=== PATIENT | male | born 1965 | race Caucasian/White ===

== ENCOUNTER → 2016-09-13 | Outpatient (CLI) | payer BC, MEDICARE ==
--- NOTE | 2016-09-14 00:16 | ECWPNPC ---
PATIENT NAME: FRANKO MOLINA : 1965 GENDER: MALE VISIT DATE: 09/13/2016 DISCHARGE DATE: 09/13/16 1208 VISIT LOCKED DATE TIME: PHYSICIAN: MAYA GARCIA RESOURCE: MAYA GARCIA REASON FOR APPOINTMENT 1. CERVICAL HISTORY OF PRESENT ILLNESS NEW PATIENT CONSULT: 51 Y/O MALE REFERRED BY DR. MOLINA FOR EVALUATION OF CHRONIC NECK PAIN.HAD CERVICAL FUSION IN MID AND NECK PAIN AND LEFT ARM PARATHESIAS MARKEDLY IMPROVED.FIVE YEARS AGO HIS PAIN IN NECK RETURNED AND HE ENDED UP HAVING CERVICAL DISCECTOMY.HE BEGAN TO SEE [facility] AND WAS TREATED WITH INJECTIONS AND MEDICATION.STOPPED GOING AROUND 5 MONTHS AGO AND REASON IS NOT CLEAR WHY.PATIENT HAS POOR RECALL AND REPORTS DIFFICULTY WITH MEMORY.FOLLOWS WITH [facility] OVER THE PAST FEW YEARS FOR TREMORS AND HAS BEEN ON PRIMIDONE THE PAST YEAR WHICH HAS BEEN HELPFUL.HIT HEAD GOING DOWN STAIRS AT BEGINNING OF MONTH AND NECK JACKSON HAS ESCALATED.RATING PAIN VAS 9/10.DESCRIBES PAIN SHARP AND ACHING.PAIN IS AGGREVATED BY TURNING NECK.HAS BEEN USING PERCOCET FROM AN OLD PRESCRIPTION BUT HAS RUN OUT ONE WEEK AGO.POOR HISTORIAN. WHEN DID YOUR PAIN FIRST START? . BRIEFLY DESCRIBE HOW YOUR PAIN STARTED? . HOW DOES YOUR PAIN CHANGE WITH TIME? . DOES YOUR PAIN AWAKEN YOU FROM SLEEP? . HOW MANY HOURS OF SLEEP DO YOU NORMALLY GET? . ANY DIAGNOSTIC TESTING? . FACILITY WHERE TESTS WERE DONE? ____. PAIN TREATMENT TREATMENT YES CANCER HAVE YOU EVER HAD ANY TYPE OF CANCER?NO NO. PAIN SCREENING: PATIENT HAS A COMPLAINT OF ACUTE OR CHRONIC PAIN YES FALL RISK SCREENING: SCREENING :NO FALLS IN THE PAST YEAR MEJIA INVENTORY: QUESTIONNAIRE ASSESSEDYES SCORE VALUE CALCULATED YES CURRENT MEDICATIONS TAKING ASPIR-81 81 MG TABLET DELAYED RELEASE 1 TABLET ORALLY ONCE A DAY TAKING CELEBREX 200 MG CAPSULE 1 CAPSULE ORALLY ONCE A DAY TAKING LISINOPRIL 10 MG TABLET 1 TABLET ORALLY TWICE A DAY TAKING ZYRTEC ALLERGY 10 MG TABLET 1 TABLET ORALLY ONCE A DAY TAKING PERCOCET 5-325 MG TABLET 1 TABLET NEEDED ORALLY EVERY 6 HRS TAKING CYCLOBENZAPRINE HCL 10 MG TABLET 1 TABLET ORALLY 3X/DAY NEEDED TAKING PRIMIDONE 50 MG TABLET ORALLY TWICE DAILY TAKING ESCITALOPRAM OXALATE 10 MG TABLET 1 TABLET ORALLY ONCE A DAY TAKING AMLODIPINE BESYLATE 10 MG TABLET 1 TABLET ORALLY ONCE A DAY DISCONTINUED ATENOLOL 25 MG TABLET 1 TABLET ORALLY ONCE A DAY DISCONTINUED ATIVAN 0.5 MG TABLET TAB ORALLY QID PRN DISCONTINUED HYDROCHLOROTHIAZIDE 25 MG TABLET 1 TABLET ORALLY ONCE A DAY DISCONTINUED MECLIZINE HCL 25 MG TABLET CHEWABLE 1 TABLET ORALLY TID PRN DISCONTINUED TRAMADOL-ACETAMINOPHEN 37.5-325 MG TABLET 2 TABLETS NEEDED ORALLY EVERY 6 HRS DISCONTINUED VALIUM 5 MG TABLET 1 TABLET NEEDED ORALLY TWICE A DAY DISCONTINUED LEXAPRO 10 MG TABLET 1 TABLET ORALLY ONCE A DAY DISCONTINUED HYDROCODONE-ACETAMINOPHEN 5-500 MG CAPSULE 1 CAPSULE NEEDED ORALLY EVERY 6 HRS MEDICATION LIST REVIEWED AND RECONCILED WITH THE PATIENT PAST MEDICAL HISTORY DEPRESSION ANXIETY HTN GENERALIZED OSTEOARTHRITIS INTERVERTEBRAL DISC DEGENERATION LUMBAR RADICULOPATHY CERVICAL RADICULOPATHY NECK SPRAIN OSTEOARTHRITIS ALLERGIES N.K.D.A. SURGICAL HISTORY RIGHT ROTATOR CUFF REPAIR X 2 SURGERIES CERVICAL FUSION C SPINE DISCECTOMY L SPINE LAMINECTOMY FAMILY HISTORY FATHER: MOTHER: 1 SON(S) , 2 DAUGHTER(S) - HEALTHY. SOCIAL HISTORY GENERAL: TOBACCO USE ARE YOU A:NONSMOKER ALCOHOL SCREENING POINTS4 INTERPRETATIONPOSITIVE RECREATIONAL DRUG USE DRUG USE?NO CAFFEINE CAFFEINE USE?YES HOW OFTEN AND HOW MUCH? 1 CUP OF COFFEE DAILY OCCUPATION: DISABLED. DIET: REGULAR, NO ADDED SALT. EXERCISE: NONE. MARITAL STATUS: . OTHERS AT HOME: SPOUSE, CHILDREN. CAODAISM: NONE. LEARNING BARRIERS / SPECIAL NEEDS VISION IMPAIRED?YES :CORRECTIVE LENSES LEARNING PREFERENCES?YES :HANDOUTS, DEMONSTRATION/VERBAL INSTRUCTION MEDICATION ABUSE NO PSYCHOLOGICAL HX TREATMENTNO PAIN CLINIC PFS, CLERGY, PUBLIC HEALTH REFERRALS PFS REFERRAL NEEDED?NO CLERGY REFERRAL NEEDED?NO PUBLIC HEALTH REFERRAL NEEDED?NO WAS THE PROVIDER NOTIFIED OF ANY PERTINENT INFO?NO PATIENT: ____. ADVANCED DIRECTIVES HEALTH CARE PROXY?YES NAME OF HCP EMILIANO MOLINA CONTACT # FOR HCP [phone] IF YES, DO YOU HAVE A COPY WITH YOU? NO DO YOU HAVE A DNR?NO LIVING WILL?NO POWER OF WHEEL OF FORTUNE DEALER?NO DOMESTIC VIOLENCE: NONE. HOSPITALIZATION/MAJOR DIAGNOSTIC PROCEDURE UTI ABOVE SURGERIES REVIEW OF SYSTEMS CONSTITUTIONAL: ANY CHANGE IN YOUR MEDICAL CONDITION? NO . CHILLS NO . FEVER NO . INFECTION: DO YOU HAVE NEW INFECTIONS? NO . DO YOU HAVE HISTORY OF MRSA? NO . MUSCULOSKELETAL: ANY NEW PATTERNS OF PAIN OR NUMBNESS? YES PT STATES 08/2016 &QUOT; JAMMED MY HEAD/NECK INTO SHELF GOING DOWNSTAIRS&QUOT; HAS HAD NECK/SHOULDER PAIN BILATERALLY SINCE INCIDENT. . SYTEMIC LUPUS NO . GASTROENTEROLOGY: ANY NEW CHANGE IN BOWEL CONTROL? NO . BARRETTS ESOPHAGUS NO . CIRRHOSIS NO . HEPATITIS NO . LIVER FAILURE NO . ACID REFLUX NO . UNEXPLAINED WEIGHT LOSS NO . GENITOURINARY: ANY NEW CHANGE IN BLADDER CONTROL? NO . IS THERE A CHANCE YOU COULD BE ? NO . HEMATOLOGY/LYMPH: DO YOU TAKE ANY BLOOD THINNERS? (FOR EXAMPLE- COUMADIN, PLAVIX, AGGRENOX, PLATEL, PRADAXA, OR XARELTO) NO . WHEN WAS YOUR LAST DOSE? DATE: TIME: . LOW PLATELET COUNT NO . SICKLE CELL DISEASE NO . VON WILLIEBRANDS NO . FACTOR V LEIDEN NO . THALLASEMIA NO . ANEMIA NO . EASY BRUISING NO . NEUROLOGY: HAVE YOU FALLEN IN THE PAST 6 MONTHS? YES 08/2016 ONSTAIRS . ANY NEW EXTREMITY NUMBNESS OR WEAKNESS? NO . HEAD INJURY YES 08/2016 -STRUCK HEAD ON SHELF ON STAIRS. EVALUATED AT [facility] X 2 VISITS. . DEMENTIA NO . CEREBRAL PALSY NO . MULTIPLE SCLEROSIS NO . DIZZINESS NO . HEADACHE NO . STROKES NO . VERTIGO NO . CARDIOLOGY: DO YOU HAVE A PACEMAKER OR DEFIBRILLATOR? NO . ANGINA NO . HEART ATTACK NO . HEART SURGERY NO . CONGESTIVE HEART FAILURE/FLUID OVERLOAD NO . CHEST PAIN NO, RETROSTERNAL, SHARP, RADIATING TO NECK, RADIATING TO LEFT ARM . HIGH BLOOD PRESSURE ON MEDICATION(S) . IRREGULAR HEART BEAT NO . RESPIRATORY: HAVE YOU BEEN SICK IN THE PAST WEEK? NO . FEVER NO . FLU LIKE SYMPTOMS? NO . CPAP NO . BYPAP NO . ASTHMA NO . EMPHYSEMA NO . CHRONIC LUNG DISEASES NO . SHORTNESS OF BREATH ON EXERTION NO . DO YOU USE ANY TYPE OF TOBACCO (SMOKE, SMOKELESS, CHEW)? YES CHEWS TOBACCO . COUGH NO . SNORING YES . INTEGUMENTARY: DO YOU HAVE ANY RASHES OR OPEN SORES? NO . ALLERGIC/IMMUNO: ARE YOU ALLERGIC TO SHELLFISH OR IV DYE? NO . ANY NEW ALLERGIES? NO . PSYCHIATRIC: DO YOU HAVE THOUGHTS OF HURTING YOURSELF OR SOMEONE ELSE? NO . ARE YOU ABUSED, NEGLECTED, OR IN AN UNSAFE ENVIRONMENT? NO . ENDOCRINOLOGY: ARE YOU DIABETIC? NO . THYROID DISORDER NO . OTHER: DO YOU NEED ANY PRESCRIPTIONS? NO . IF YES, PLEASE LIST: ____ . ANY NEW PROBLEMS WITH YOUR MEDICATIONS? NO . WHEN DID YOU LAST EAT? ____ . WHEN DID YOU LAST DRINK? ____ . WHAT DID YOU LAST DRINK? ____ . NAME OF PERSON DRIVING YOU HOME? ____ . DO YOU HAVE ANY OTHER QUESTIONS OR CONCERNS NO . REVIEWED BY: PROVIDER: MAYA LE . VITAL SIGNS WT 160.8 LBS, HT 5'5", BMI 26.76 INDEX, BP 152/88 MM HG, HR 88 /MIN, RR 18 /MIN, TEMP 98.1 F, OXYGEN SAT % 98%, NA INITIALS AW 10:40, REVIEWED BY: MLF. EXAMINATION GENERAL EXAMINATION: GENERAL APPEARANCE:NO ACUTE DISTRESS. NECK:NEG LYMPHADENOPATHY. LUNGS:LUNG SOUNDS ARE CLEAR.RESPIRATIONS NON-LABORED. ABDOMEN:SOFT, NON-TENDER, NO ORGANOMEGALY, BOWEL SOUNDS ARE NORMAL. DIAGNOSTIC -MRI [id number]-REVIEWED. CERVICAL SPINE/NECK: RANGE OF MOTION OF NECK:LIMITED IN ALL DIRECTIONS. REFLEXES:DTRS IN THE ARMS ARE 2+ THROUGHOUT AND EQUAL BILATERALLY. SENSATIONS:NORMAL BILATERALLY. VERTEBRAL SPINE TENDERNESS:POSITIVE W PALPATION OF CERVICAL AXIS AND CERVICAL PARASPINALS. ASSESSMENTS CERVICAL SPINAL STENOSIS - M48.02 (PRIMARY) CERVICAL POST-LAMINECTOMY SYNDROME - M96.1 TREATMENT CERVICAL SPINAL STENOSIS INJECTION FACET JOINT/NERVE MAYA PALOMARES 09/13/2016 11:43:46 AM > BILAT C4/5-C5/6 THERAPEUTIC FACET NOTES: FACET JOINT INJECTION MATERIAL WAS PRINTED,FACET JOINT INJECTION: YOUR EXPERIENCE MATERIAL WAS PRINTED. PROCEDURE CODES FA211 ESTABILISHED PATIENT [facility] FACILITY CHARGE DISPOSITION & COMMUNICATION FOLLOW UP 2WK POST (REASON: BILAT C4/5-C5/6 THERAPEUTIC FACET BLOCK) ELECTRONICALLY SIGNED BY REY NETTLES ON 09/13/2016 AT 04:23 PM EDT DISCLAIMER : THIS IS A VISIT SUMMARY EXTRACTED FROM THE [employer] CHART. IT IS NOT A COPY OF THE [employer] PROGRESS NOTE. KAMALJIT
== END | disposition home or self-care (01) ==
LOC: M PAIN 11:20
PROVIDERS: ATTEND Nurse Practitioner Family
DX: G89.29 Other chronic pain (principal); M48.02 Spinal stenosis, cervical region; M96.1 Postlaminectomy syndrome, not elsewhere classified; I10 Essential (primary) hypertension; F41.9 Anxiety disorder, unspecified; F32.9 Major depressive disorder, single episode, unspecified; M54.12 Radiculopathy, cervical region; M54.16 Radiculopathy, lumbar region; M51.9 Unspecified thoracic, thoracolumbar and lumbosacral intervertebral disc disorder; Z79.899 Other long term (current) drug therapy; Z79.82 Long term (current) use of aspirin

== ENCOUNTER → 2016-09-28 | Outpatient (CLI) | payer BC, MEDICARE ==
[~2016-09-28] MED LIST: BUPIVACAINE HCL 0.25% 30 ML VIAL As Ordered ONE; ISOVUE-M 300 61% 15ML VIAL (Q9967) As Ordered ONE; LIDOCAINE 1% SDV INJ 30 ML VIAL As Ordered ONE; TRIAMCINOLONE ACETONIDE SUSP 40 MG/ML VIAL (J3301) As Ordered ONE; diazePAM 5 MG TAB As Ordered ONE; oxyCODONE 5MG TAB As Ordered ONE
--- NOTE | 2016-09-28 14:51 | REP ---
C-ARM FLUOROSCOPY GUIDANCE FOR BILATERAL CERVICAL FACET INJECTION: 09/28/2016 CLINICAL HISTORY: Neck pain. Plate and screw anterior cervical fixation from C5 through C7 noted. There are needles at C6-7 and C7-T1 levels on each side with contrast adjacent to the needles overlying those facets. Fluoroscopy time: 9 seconds. Signed by Robin Wong MD 09/28/2016 05:52 P
--- NOTE | 2016-10-08 23:38 | ECWPNPC ---
PATIENT NAME: FRANKO MOLINA : 1965 GENDER: MALE VISIT DATE: 09/28/2016 DISCHARGE DATE: 09/28/16 1219 VISIT LOCKED DATE TIME: PHYSICIAN: DEBBIE YE RESOURCE: DEBBIE YE REASON FOR APPOINTMENT 1. BILAT THERAPEUTIC FACET BLK HISTORY OF PRESENT ILLNESS HISTORY OF PRESENT ILLNESS: PAIN THE PATIENT DESCRIBES THE PAIN... FALL RISK SCREENING: SCREENING :NO FALLS IN THE PAST YEAR CURRENT MEDICATIONS TAKING ASPIR-81 81 MG TABLET DELAYED RELEASE 1 TABLET ORALLY ONCE A DAY, NOTES: 09/28 5AM TAKING CELEBREX 200 MG CAPSULE 1 CAPSULE ORALLY ONCE A DAY, NOTES: 09/28 5AM TAKING LISINOPRIL 10 MG TABLET 1 TABLET ORALLY TWICE A DAY, NOTES: 09/28 5AM TAKING ZYRTEC ALLERGY 10 MG TABLET 1 TABLET ORALLY ONCE A DAY, NOTES: FEW MONTHS AGO TAKING PERCOCET 5-325 MG TABLET 1 TABLET NEEDED ORALLY EVERY 6 HRS, NOTES: SUNDAY GINI TAKING CYCLOBENZAPRINE HCL 10 MG TABLET 1 TABLET ORALLY 3X/DAY NEEDED, NOTES: SUNDAY GINI TAKING PRIMIDONE 50 MG TABLET ORALLY TWICE DAILY, NOTES: 09/28 5A TAKING ESCITALOPRAM OXALATE 10 MG TABLET 1 TABLET ORALLY ONCE A DAY, NOTES: 09/28 5AM TAKING AMLODIPINE BESYLATE 10 MG TABLET 1 TABLET ORALLY ONCE A DAY, NOTES: 09/28 5AM MEDICATION LIST REVIEWED AND RECONCILED WITH THE PATIENT PAST MEDICAL HISTORY DEPRESSION ANXIETY HTN GENERALIZED OSTEOARTHRITIS INTERVERTEBRAL DISC DEGENERATION LUMBAR RADICULOPATHY CERVICAL RADICULOPATHY NECK SPRAIN OSTEOARTHRITIS ALLERGIES N.K.D.A. REVIEW OF SYSTEMS CONSTITUTIONAL: ANY CHANGE IN YOUR MEDICAL CONDITION? NO . CHILLS NO . FEVER NO . INFECTION: DO YOU HAVE NEW INFECTIONS? NO . DO YOU HAVE HISTORY OF MRSA? NO . MUSCULOSKELETAL: ANY NEW PATTERNS OF PAIN OR NUMBNESS? NO . GASTROENTEROLOGY: ANY NEW CHANGE IN BOWEL CONTROL? NO . GENITOURINARY: ANY NEW CHANGE IN BLADDER CONTROL? NO . IS THERE A CHANCE YOU COULD BE ? NO . HEMATOLOGY/LYMPH: DO YOU TAKE ANY BLOOD THINNERS? (FOR EXAMPLE- COUMADIN, PLAVIX, AGGRENOX, PLATEL, PRADAXA, OR XARELTO) NO . WHEN WAS YOUR LAST DOSE? DATE: TIME: . NEUROLOGY: HAVE YOU FALLEN IN THE PAST 6 MONTHS? NO . ANY NEW EXTREMITY NUMBNESS OR WEAKNESS? NO . CARDIOLOGY: DO YOU HAVE A PACEMAKER OR DEFIBRILLATOR? NO . RESPIRATORY: HAVE YOU BEEN SICK IN THE PAST WEEK? NO . FEVER NO . FLU LIKE SYMPTOMS? NO . COUGH NO . INTEGUMENTARY: DO YOU HAVE ANY RASHES OR OPEN SORES? NO . ALLERGIC/IMMUNO: ARE YOU ALLERGIC TO SHELLFISH OR IV DYE? NO . ANY NEW ALLERGIES? NO . PSYCHIATRIC: DO YOU HAVE THOUGHTS OF HURTING YOURSELF OR SOMEONE ELSE? NO . ARE YOU ABUSED, NEGLECTED, OR IN AN UNSAFE ENVIRONMENT? NO . ENDOCRINOLOGY: ARE YOU DIABETIC? NO . OTHER: DO YOU NEED ANY PRESCRIPTIONS? NO . IF YES, PLEASE LIST: ____ . ANY NEW PROBLEMS WITH YOUR MEDICATIONS? NO . WHEN DID YOU LAST EAT? 09/27 . WHEN DID YOU LAST DRINK? 09/28 8:30AM . WHAT DID YOU LAST DRINK? WATER . NAME OF PERSON DRIVING YOU HOME? BRADLEY MOLINA . DO YOU HAVE ANY OTHER QUESTIONS OR CONCERNS PT IS A CURRENT CHEWING TOBACCO USER, REFUSING ANY SMOKING CESSATION COUNSELING AT THIS TIME. JB . REVIEWED BY: PROVIDER: . VITAL SIGNS WT 160.8 LBS, HT 5'5", BMI 26.76 INDEX, BP 160/95 MM HG, HR 77 /MIN, RR 18 /MIN, TEMP 98.1 F, OXYGEN SAT % 98%, SAFE IN ENV? (Y/N) Y, NA INITIALS SC 11:00, REVIEWED BY: JB. ASSESSMENTS SPONDYLOSIS WITHOUT MYELOPATHY OR RADICULOPATHY, CERVICAL REGION - M47.812 (PRIMARY) PROCEDURES PN CERVICAL FACET BLOCK LOW BILATERAL CERVICAL PRE PROCEDURE DIAGNOSIS CERVICAL SPONDYLOSIS POST PROCEDURE DIAGNOSIS CERVICAL SPONDYLOSIS PROCEDURE BILATERAL C5-C6 AND BILATERAL C6-C7 CERVICAL FACET BLOCK THERAPEUTIC SURGEON DR. DEBBIE YE CARGO OPERATIONS AGENT NONE ANESTHESIA LOCAL PRE PROCEDURE NOTE THE PATIENT HAS HISTORY OF CHRONIC CERVICAL PAIN. I EVALUATE THE PATIENT AND REVIEWED THE CHART. I WENT OVER THE RISKS, ALTERNATIVES, AND BENEFITS ASSOCIATED WITH THIS PROCEDURE. THE PATIENT WOULD LIKE TO PROCEED AND GIVE CONSENT TO PERFORMED THE PROCEDURE. THE PATIENT DENIES UNEXPLAINABLE WEIGHT LOSS, FEVER, CHILLS, OR NEW CHANGES IN URINARY OR BOWEL CONTROL. DESCRIPTION OF PROCEDURE THE PATIENT WAS BROUGHT TO THE PROCEDURE ROOM AND PLACED IN THE PRONE POSITION. THE CERVICOTHORACIC AREA WAS CLEANED WITH CHLORAPREP SOLUTION AND DRAPED ASEPTICALLY. THE PROCEDURE WAS DONE UNDER STERILE CONDITIONS. I CHECKED LATERALITY AND THE LEVEL WHERE THE PROCEDURE WAS GOING TO BE PERFORMED WITH THE PATIENT AND THE SUPPORTING STAFF AT THE MOMENT OF THE TIME OUT IN THE PROCEDURE ROOM. UNDER FLUOROSCOPIC GUIDANCE, TARGET POINT WAS SELECTED AT THE RIGHT AND LEFT C5-C6 AND RIGHT AND LEFT C6-C7 CERVICAL FACET JOINT. TARGET POINTS WERE SELECTED AFTER LATERAL ROTATION AND TILT OF THE MAGNIFIER OF THE C-ARM. LIDOCAINE 0.5% WAS USED TO NUMB THE SKIN AND THE SUBCUTANEOUS TISSUE BELOW IT. SPINAL NEEDLES, 22-GAUGE, WERE ADVANCED UNDER FLUOROSCOPIC GUIDANCE AND FOLLOWING PATIENT FEEDBACK UNTIL THE TARGETS WERE TOUCHED. THE POSITION OF THE NEEDLES WAS VERIFIED WITH AP AND LATERAL VIEWS. AFTER PROPER POSITION OF THE NEEDLES WAS ACHIEVED, ISOVUE M DYE 30, 0.1 ML WAS INJECTED SHOWING SPREAD OF THE DYE. THEN A SOLUTION OF 0.9 ML OF BUPIVACAINE 0.125% AND KENALOG 10 MG WAS INJECTED AT EACH SITE. THERE WAS NO EVIDENCE OF BLOOD, PARESTHESIA OR CEREBROSPINAL FLUID DURING THE PROCEDURE. THE PATIENT WAS SENT TO THE RECOVERY ROOM. THE PATIENT WAS MOVING THE EXTREMITIES AND DOING WELL. THERE WAS NO COMPLICATION DURING THE PROCEDURE. FLUOROSCOPY TIME WAS 9 SECONDS POST PROCEDURE NOTE THE PATIENT WILL BE SEEN IN A FOLLOW UP IN THE NEXT FEW WEEKS. INSTRUCTIONS WERE GIVEN, QUESTIONS WERE ANSWERED, AND THE PATIENT EXPRESSED UNDERSTANDING AND AGREES WITH THE PLAN. I, YE ENRIQUEZ, DOCUMENTED THE ABOVE INFORMATION ACTING A SCRIBE FOR DR. YE. I HAVE REVIEWED THE ABOVE DOCUMENT, WRITTEN BY YE ENRIQUEZ SCRIBE AND I VERIFY THAT IT IS ACCURATE DIAGNOSTIC IMAGING [facility] FACET BLOCK (PAIN)[id number] PROCEDURE CODES 83018 INJ PARAVERT F JNT C/T 1 LEV 04848 INJ PARAVERT F JNT C/T 2 LEV 6045F RADXPS IN END [id number] PXD DISPOSITION & COMMUNICATION FOLLOW UP 3 WEEKS ELECTRONICALLY SIGNED BY DEBBEI YE MD ON 10/08/2016 AT 08:55 PM EDT DISCLAIMER : THIS IS A VISIT SUMMARY EXTRACTED FROM THE [employer] CHART. IT IS NOT A COPY OF THE [employer] PROGRESS NOTE. MTDD
== END ==
LOC: M PAIN 11:00
PROVIDERS: ATTEND Anesthesiology
DX: G89.29 Other chronic pain (principal); M47.812 Spondylosis without myelopathy or radiculopathy, cervical region; F32.9 Major depressive disorder, single episode, unspecified; F41.9 Anxiety disorder, unspecified; I10 Essential (primary) hypertension; M15.0 Primary generalized (osteo)arthritis; Z79.82 Long term (current) use of aspirin; Z79.899 Other long term (current) drug therapy
CPT/HCPCS: 64490; 64491; J3301; Q9967

== ENCOUNTER → 2016-10-23 | Outpatient (CLI) | payer BC, MEDICARE ==
--- NOTE | 2016-10-24 02:12 | ECWPNPC ---
PATIENT NAME: FRANKO MOLINA : 1965 GENDER: MALE VISIT DATE: 10/23/2016 DISCHARGE DATE: 10/23/16 1032 VISIT LOCKED DATE TIME: PHYSICIAN: MAYA GARCIA RESOURCE: MAYA GARCIA REASON FOR APPOINTMENT 1. POST PROCEDURE HISTORY OF PRESENT ILLNESS HISTORY OF PRESENT ILLNESS: HERE FOR POST PROCEURE F/U.HAD C5/6-C6/7 BILAT. THERAPEUTIC FACET BLOCK ON 09-28-16.REPORTS >50 % IMPROVEMENT IN PAIN THAT CONTINUES TODAY.PAIN SEEMS TO BE LOCATED IN UPPER NECK-C3/4-C4/5 REGION.PAIN AGGREVATED IN UPPER NECK WITH EXTENSION OF NECK.RATING PAIN VAS 5/10.ALSO SUFFERS FROM PERSISTENT LOW BACK PAIN. PAIN THE PATIENT DESCRIBES THE PAIN... FALL RISK SCREENING: SCREENING :NO FALLS IN THE PAST YEAR CURRENT MEDICATIONS TAKING ASPIR-81 81 MG TABLET DELAYED RELEASE 1 TABLET ORALLY ONCE A DAY, NOTES: 09/28 5AM TAKING CELEBREX 200 MG CAPSULE 1 CAPSULE ORALLY ONCE A DAY, NOTES: 09/28 5AM TAKING LISINOPRIL 10 MG TABLET 1 TABLET ORALLY TWICE A DAY, NOTES: 09/28 5AM TAKING ZYRTEC ALLERGY 10 MG TABLET 1 TABLET ORALLY ONCE A DAY, NOTES: FEW MONTHS AGO TAKING PERCOCET 5-325 MG TABLET 1 TABLET NEEDED ORALLY EVERY 6 HRS, NOTES: SUNDAY GINI TAKING CYCLOBENZAPRINE HCL 10 MG TABLET 1 TABLET ORALLY 3X/DAY NEEDED, NOTES: SUNDAY GINI TAKING PRIMIDONE 50 MG TABLET ORALLY TWICE DAILY, NOTES: 09/28 5AM TAKING ESCITALOPRAM OXALATE 10 MG TABLET 1 TABLET ORALLY ONCE A DAY, NOTES: 09/28 5AM TAKING AMLODIPINE BESYLATE 10 MG TABLET 1 TABLET ORALLY ONCE A DAY, NOTES: 09/28 5AM TAKING LIDOCAINE & ADHESIVE SHEETS 5 % (OINT) KIT EXTERNALLY ON 12HR OFF 12HR MEDICATION LIST REVIEWED AND RECONCILED WITH THE PATIENT PAST MEDICAL HISTORY DEPRESSION ANXIETY HTN GENERALIZED OSTEOARTHRITIS INTERVERTEBRAL DISC DEGENERATION LUMBAR RADICULOPATHY CERVICAL RADICULOPATHY NECK SPRAIN OSTEOARTHRITIS ALLERGIES SEASONAL: ITCHY EYES, SINUS CONGESTION: ALLERGY SOCIAL HISTORY GENERAL: TOBACCO USE ADDITIONAL FINDINGS: TOBACCO USERCHEWS TOBACCO SMOKING CESSATION INFORMATION GIVEN10/23/2016 PAIN CLINIC PFS, CLERGY, PUBLIC HEALTH REFERRALS CLERGY REFERRAL NEEDED?NO WAS THE PROVIDER NOTIFIED OF ANY PERTINENT INFO?NO PFS REFERRAL NEEDED?NO PUBLIC HEALTH REFERRAL NEEDED?NO PATIENT: ____. REVIEW OF SYSTEMS CONSTITUTIONAL: ANY CHANGE IN YOUR MEDICAL CONDITION? NO . CHILLS NO . FEVER NO . INFECTION: DO YOU HAVE NEW INFECTIONS? NO . DO YOU HAVE HISTORY OF MRSA? NO . MUSCULOSKELETAL: ANY NEW PATTERNS OF PAIN OR NUMBNESS? YES, PAIN NOW IS LOW BACK AND HIGHER ON THE NECK THAN WAS INJECTED . GASTROENTEROLOGY: ANY NEW CHANGE IN BOWEL CONTROL? NO . GENITOURINARY: ANY NEW CHANGE IN BLADDER CONTROL? NO . IS THERE A CHANCE YOU COULD BE ? NO . HEMATOLOGY/LYMPH: DO YOU TAKE ANY BLOOD THINNERS? (FOR EXAMPLE- COUMADIN, PLAVIX, AGGRENOX, PLATEL, PRADAXA, OR XARELTO) NO . WHEN WAS YOUR LAST DOSE? DATE: TIME: . NEUROLOGY: HAVE YOU FALLEN IN THE PAST 6 MONTHS? NO . ANY NEW EXTREMITY NUMBNESS OR WEAKNESS? NO . CARDIOLOGY: DO YOU HAVE A PACEMAKER OR DEFIBRILLATOR? NO . RESPIRATORY: HAVE YOU BEEN SICK IN THE PAST WEEK? NO . FEVER NO . FLU LIKE SYMPTOMS? NO . COUGH NO . INTEGUMENTARY: DO YOU HAVE ANY RASHES OR OPEN SORES? NO . ALLERGIC/IMMUNO: ARE YOU ALLERGIC TO SHELLFISH OR IV DYE? NO . ANY NEW ALLERGIES? NO . PSYCHIATRIC: DO YOU HAVE THOUGHTS OF HURTING YOURSELF OR SOMEONE ELSE? NO . ARE YOU ABUSED, NEGLECTED, OR IN AN UNSAFE ENVIRONMENT? NO . ENDOCRINOLOGY: ARE YOU DIABETIC? NO . OTHER: DO YOU NEED ANY PRESCRIPTIONS? NO . IF YES, PLEASE LIST: ____ . ANY NEW PROBLEMS WITH YOUR MEDICATIONS? NO . WHEN DID YOU LAST EAT? ____ . WHEN DID YOU LAST DRINK? ____ . WHAT DID YOU LAST DRINK? ____ . NAME OF PERSON DRIVING YOU HOME? ____ . DO YOU HAVE ANY OTHER QUESTIONS OR CONCERNS NO . REVIEWED BY: PROVIDER: MAYA LE . VITAL SIGNS WT 155 LBS, HT 5'5", BMI 25.79 INDEX, BP 139/76 MM HG, HR 71 /MIN, RR 18 /MIN, TEMP 97.9 F, OXYGEN SAT % 97%, NA INITIALS SC 09:40, REVIEWED BY: AD. EXAMINATION GENERAL EXAMINATION: GENERAL APPEARANCE:NO ACUTE DISTRESS. NECK:NEG LYMPHADENOPATHY. LUNGS:LUNG SOUNDS ARE CLEAR.RESPIRATIONS NON-LABORED. ABDOMEN:SOFT, NON-TENDER, NO ORGANOMEGALY, BOWEL SOUNDS ARE NORMAL. DIAGNOSTIC -MRI H-[id number]-REVIEWED. ASSESSMENTS CERVICAL SPINAL STENOSIS - M48.02 (PRIMARY) CERVICAL POST-LAMINECTOMY SYNDROME - M96.1 TREATMENT CERVICAL SPINAL STENOSIS INJECTION FACET JOINT/NERVE CERVICAL LEFTRADHAKIMBERLEYMAYA 10/23/2016 10:22:35 AM > BILAT. C3/4-C4/5 THERAPEUTIC FACET BLOCK INJECTION FACET JOINT/NERVE CERVICAL RIGHTBARBERMAYA 10/23/2016 10:23:12 AM > BILAT. C3/4-C4/5 THEREUTIC FACET BLOCK NOTES: FACET JOINT INJECTION: YOUR EXPERIENCE MATERIAL WAS PRINTED. PROCEDURE CODES FA211 ESTABILISHED PATIENT [facility] FACILITY CHARGE DISPOSITION & COMMUNICATION FOLLOW UP 2WK POST (REASON: C3/4-C4/5 THERAPEUTIC FACET BLOCK) ELECTRONICALLY SIGNED BY REY NETTLES ON 10/23/2016 AT 11:12 AM EDT DISCLAIMER : THIS IS A VISIT SUMMARY EXTRACTED FROM THE [employer] CHART. IT IS NOT A COPY OF THE [employer] PROGRESS NOTE. KAMALJIT
== END ==
LOC: M PAIN 09:40
PROVIDERS: ATTEND Nurse Practitioner Family
DX: G89.29 Other chronic pain (principal); M48.02 Spinal stenosis, cervical region; M96.1 Postlaminectomy syndrome, not elsewhere classified; F32.9 Major depressive disorder, single episode, unspecified; F41.9 Anxiety disorder, unspecified; I10 Essential (primary) hypertension; M15.0 Primary generalized (osteo)arthritis; F17.228 Nicotine dependence, chewing tobacco, with other nicotine-induced disorders; J30.2 Other seasonal allergic rhinitis; Z79.82 Long term (current) use of aspirin; Z79.891 Long term (current) use of opiate analgesic; Z79.899 Other long term (current) drug therapy

== ENCOUNTER → 2016-11-02 | Outpatient (CLI) | payer BC, MEDICARE ==
--- NOTE | 2016-11-02 18:10 | REP ---
FACET BLOCK: The images were reviewed with Dr. Martins. The patient has a history of neck pain. The portable C-ARM was provided in the OR for Dr. Velazquez for fluoroscopic guidance. 1 intraoperative fluoroscopic spot film was obtained for needle placement verification for bilateral cervical facet injection. The film is on the PACs system and is available for review. 8 seconds of fluoroscopic time was utilized for this procedure. Reviewed by BRITTANI Hinson 11/03/2016 08:27 AEdited and Signed by Ashish Martins MD 11/03/2016 05:08 P
--- NOTE | 2016-11-07 00:56 | ECWPNPC ---
PATIENT NAME: FRANKO MOLINA : 1965 GENDER: MALE VISIT DATE: 11/02/2016 DISCHARGE DATE: 11/02/16 1318 VISIT LOCKED DATE TIME: PHYSICIAN: DEBBIE YE RESOURCE: DEBBIE YE REASON FOR APPOINTMENT 1. CERVICAL THERAPEUTIC FACET BLOCK HISTORY OF PRESENT ILLNESS HISTORY OF PRESENT ILLNESS: PAIN THE PATIENT DESCRIBES THE PAIN... FALL RISK SCREENING: SCREENING :NO FALLS IN THE PAST YEAR CURRENT MEDICATIONS TAKING ASPIR-81 81 MG TABLET DELAYED RELEASE 1 TABLET ORALLY ONCE A DAY, NOTES: 11-02-16599 TAKING CELEBREX 200 MG CAPSULE 1 CAPSULE ORALLY ONCE A DAY, NOTES: 11-02-16599 TAKING LISINOPRIL 10 MG TABLET 1 TABLET ORALLY TWICE A DAY, NOTES: 11-02-16599 TAKING ZYRTEC ALLERGY 10 MG TABLET 1 TABLET ORALLY ONCE A DAY, NOTES: 11-02-16599 TAKING PERCOCET 5-325 MG TABLET 1 TABLET NEEDED ORALLY EVERY 6 HRS, NOTES: MONTH AGO TAKING CYCLOBENZAPRINE HCL 10 MG TABLET 1 TABLET ORALLY 3X/DAY NEEDED, NOTES: WEEK AGO TAKING PRIMIDONE 50 MG TABLET ORALLY TWICE DAILY, NOTES: 11-02-16599 TAKING ESCITALOPRAM OXALATE 10 MG TABLET 1 TABLET ORALLY ONCE A DAY, NOTES: 11-02-16599 TAKING AMLODIPINE BESYLATE 10 MG TABLET 1 TABLET ORALLY ONCE A DAY, NOTES: 11-02-16599 TAKING LIDOCAINE & ADHESIVE SHEETS 5 % (OINT) KIT EXTERNALLY ON 12HR OFF 12HR, NOTES: WEEK MEDICATION LIST REVIEWED AND RECONCILED WITH THE PATIENT PAST MEDICAL HISTORY DEPRESSION ANXIETY HTN GENERALIZED OSTEOARTHRITIS INTERVERTEBRAL DISC DEGENERATION LUMBAR RADICULOPATHY CERVICAL RADICULOPATHY NECK SPRAIN OSTEOARTHRITIS ALLERGIES SEASONAL: ITCHY EYES, SINUS CONGESTION: ALLERGY REVIEW OF SYSTEMS CONSTITUTIONAL: ANY CHANGE IN YOUR MEDICAL CONDITION? NO . CHILLS NO . FEVER NO . INFECTION: DO YOU HAVE NEW INFECTIONS? NO . DO YOU HAVE HISTORY OF MRSA? NO . MUSCULOSKELETAL: ANY NEW PATTERNS OF PAIN OR NUMBNESS? NO . GASTROENTEROLOGY: ANY NEW CHANGE IN BOWEL CONTROL? NO . GENITOURINARY: ANY NEW CHANGE IN BLADDER CONTROL? NO . IS THERE A CHANCE YOU COULD BE ? NO . HEMATOLOGY/LYMPH: DO YOU TAKE ANY BLOOD THINNERS? (FOR EXAMPLE- COUMADIN, PLAVIX, AGGRENOX, PLATEL, PRADAXA, OR XARELTO) NO . WHEN WAS YOUR LAST DOSE? DATE: TIME: . NEUROLOGY: HAVE YOU FALLEN IN THE PAST 6 MONTHS? NO . ANY NEW EXTREMITY NUMBNESS OR WEAKNESS? NO . CARDIOLOGY: DO YOU HAVE A PACEMAKER OR DEFIBRILLATOR? NO . RESPIRATORY: HAVE YOU BEEN SICK IN THE PAST WEEK? NO . FEVER NO . FLU LIKE SYMPTOMS? NO . COUGH NO . INTEGUMENTARY: DO YOU HAVE ANY RASHES OR OPEN SORES? NO . ALLERGIC/IMMUNO: ARE YOU ALLERGIC TO SHELLFISH OR IV DYE? NO . ANY NEW ALLERGIES? NO . PSYCHIATRIC: DO YOU HAVE THOUGHTS OF HURTING YOURSELF OR SOMEONE ELSE? NO . ARE YOU ABUSED, NEGLECTED, OR IN AN UNSAFE ENVIRONMENT? NO . ENDOCRINOLOGY: ARE YOU DIABETIC? NO . OTHER: DO YOU NEED ANY PRESCRIPTIONS? NO . IF YES, PLEASE LIST: ____ . ANY NEW PROBLEMS WITH YOUR MEDICATIONS? NO . WHEN DID YOU LAST EAT? 11-01-16 5:30 PM . WHEN DID YOU LAST DRINK? 11-02-16 0830 . WHAT DID YOU LAST DRINK? WATER . NAME OF PERSON DRIVING YOU HOME? QUE . DO YOU HAVE ANY OTHER QUESTIONS OR CONCERNS NO . REVIEWED BY: PROVIDER: . VITAL SIGNS WT 152.4 LBS, HT 5'5", BMI 25.36 INDEX, BP 136/88 MM HG, HR 68 /MIN, RR 18 /MIN, TEMP 97.4 F, OXYGEN SAT % 98%, NA INITIALS TL 1109, REVIEWED BY: CM. ASSESSMENTS SPONDYLOSIS WITHOUT MYELOPATHY OR RADICULOPATHY, CERVICAL REGION - M47.812 (PRIMARY) PROCEDURES PN CERVICAL FACET BLOCK LOW BILATERAL CERVICAL PRE PROCEDURE DIAGNOSIS CERVICAL SPONDYLOSIS POST PROCEDURE DIAGNOSIS CERVICAL SPONDYLOSIS PROCEDURE BILATERAL C3-C4 AND C4-C5 CERVICAL FACET BLOCK SURGEON DR. DEBBIE YE SHEET TAILER NONE ANESTHESIA LOCAL PRE PROCEDURE NOTE THE PATIENT HAS HISTORY OF CHRONIC CERVICAL PAIN. I EVALUATE THE PATIENT AND REVIEWED THE CHART. I WENT OVER THE RISKS, ALTERNATIVES, AND BENEFITS ASSOCIATED WITH THIS PROCEDURE. THE PATIENT WOULD LIKE TO PROCEED AND GIVE CONSENT TO PERFORMED THE PROCEDURE. THE PATIENT DENIES UNEXPLAINABLE WEIGHT LOSS, FEVER, CHILLS, OR NEW CHANGES IN URINARY OR BOWEL CONTROL. DESCRIPTION OF PROCEDURE THE PATIENT WAS BROUGHT TO THE PROCEDURE ROOM AND PLACED IN THE PRONE POSITION. THE CERVICOTHORACIC AREA WAS CLEANED WITH CHLORAPREP SOLUTION AND DRAPED ASEPTICALLY. THE PROCEDURE WAS DONE UNDER STERILE CONDITIONS. I CHECKED LATERALITY AND THE LEVEL WHERE THE PROCEDURE WAS GOING TO BE PERFORMED WITH THE PATIENT AND THE SUPPORTING STAFF AT THE MOMENT OF THE TIME OUT IN THE PROCEDURE ROOM. UNDER FLUOROSCOPIC GUIDANCE, TARGET POINT WAS SELECTED AT THE RIGHT AND LEFT C3-C4 AND C4-C5 CERVICAL FACET JOINT. TARGET POINTS WERE SELECTED AFTER LATERAL ROTATION AND TILT OF THE MAGNIFIER OF THE C-ARM. LIDOCAINE 0.5% WAS USED TO NUMB THE SKIN AND THE SUBCUTANEOUS TISSUE BELOW IT. SPINAL NEEDLES, 22-GAUGE, WERE ADVANCED UNDER FLUOROSCOPIC GUIDANCE AND FOLLOWING PATIENT FEEDBACK UNTIL THE TARGETS WERE TOUCHED. THE POSITION OF THE NEEDLES WAS VERIFIED WITH AP AND LATERAL VIEWS. AFTER PROPER POSITION OF THE NEEDLES WAS ACHIEVED, ISOVUE M DYE 30, 0.1 ML WAS INJECTED SHOWING SPREAD OF THE DYE. THEN A SOLUTION OF 0.9 ML OF BUPIVACAINE 0.125% AND KENALOG 10 MG WAS INJECTED AT EACH SITE. THERE WAS NO EVIDENCE OF BLOOD, PARESTHESIA OR CEREBROSPINAL FLUID DURING THE PROCEDURE. THE PATIENT WAS SENT TO THE RECOVERY ROOM. THE PATIENT WAS MOVING THE EXTREMITIES AND DOING WELL. THERE WAS NO COMPLICATION DURING THE PROCEDURE. FLUOROSCOPY TIME WAS 8 SECONDS POST PROCEDURE NOTE THE PATIENT WILL BE SEEN IN A FOLLOW UP IN THE NEXT FEW WEEKS. INSTRUCTIONS WERE GIVEN, QUESTIONS WERE ANSWERED, AND THE PATIENT EXPRESSED UNDERSTANDING AND AGREES WITH THE PLAN. I, YE ENRIQUEZ, DOCUMENTED THE ABOVE INFORMATION ACTING A SCRIBE FOR DR. YE. I HAVE REVIEWED THE ABOVE DOCUMENT, WRITTEN BY YE ENRIQUEZ SCRIBE AND I VERIFY THAT IT IS ACCURATE DIAGNOSTIC IMAGING [facility] FACET BLOCK (PAIN)[id number] PROCEDURE CODES 70556 INJ PARAVERT F JNT C/T 1 LEV 86502 INJ PARAVERT F JNT C/T 2 LEV 6045F RADXPS IN END [id number] PXD DISPOSITION & COMMUNICATION FOLLOW UP 3 WEEKS ELECTRONICALLY SIGNED BY DEBBIE YE MD ON 11/06/2016 AT 08:37 PM EDT DISCLAIMER : THIS IS A VISIT SUMMARY EXTRACTED FROM THE [employer] CHART. IT IS NOT A COPY OF THE [employer] PROGRESS NOTE. [facility]
== END ==
LOC: M PAIN 11:00
PROVIDERS: ATTEND Anesthesiology
DX: G89.29 Other chronic pain (principal); M47.812 Spondylosis without myelopathy or radiculopathy, cervical region; F32.9 Major depressive disorder, single episode, unspecified; F41.9 Anxiety disorder, unspecified; I10 Essential (primary) hypertension; M15.0 Primary generalized (osteo)arthritis; J30.2 Other seasonal allergic rhinitis; Z79.82 Long term (current) use of aspirin; Z79.899 Other long term (current) drug therapy
CPT/HCPCS: 64490; 64491; J3301; Q9967

== ENCOUNTER → 2016-11-03 | Outpatient (CLI) | payer BC, MEDICARE ==
--- NOTE | 2016-11-22 01:43 | ECWPNPC ---
PATIENT NAME: FRANKO MOLINA : 1965 GENDER: MALE VISIT DATE: 11/03/2016 DISCHARGE DATE: 11/03/16 1020 VISIT LOCKED DATE TIME: PHYSICIAN: MAYA GARCIA RESOURCE: MAYA GARCIA REASON FOR APPOINTMENT 1. NEW BODY PART -LBP HISTORY OF PRESENT ILLNESS HISTORY OF PRESENT ILLNESS: HERE FOR EVALUATION OF CHRONIC LOW BACK PAIN.HISTORY OF CRUSH INJURY IN 1994.HISTORY OF LOW BACK SURGERY 3 -4 YEARS AGO.THIS RESOLVED LEFT LEG SYMPTOMS.PAIN IS LOCATED IN CENTER OF LOW BACK.PAIN IS AGGREVATED BY BENDING.SOMETIMES PAIN CAN GO FROM 0 TO TEN AND IS DISABLING.RATING PAIN LEVEL 2/10.PAIN HAS GOTTEN WORSE OVER THE PAST YEAR.DENIES URINARY OR BOWEL INCONTINENCE.NO RECENT FEVER ,ILLNESS OR WEIGHT LOSS. PAIN THE PATIENT DESCRIBES THE PAIN... FALL RISK SCREENING: SCREENING :NO FALLS IN THE PAST YEAR CURRENT MEDICATIONS TAKING ASPIR-81 81 MG TABLET DELAYED RELEASE 1 TABLET ORALLY ONCE A DAY TAKING CELEBREX 200 MG CAPSULE 1 CAPSULE ORALLY ONCE A DAY TAKING LISINOPRIL 10 MG TABLET 1 TABLET ORALLY TWICE A DAY TAKING ZYRTEC ALLERGY 10 MG TABLET 1 TABLET ORALLY ONCE A DAY TAKING PERCOCET 5-325 MG TABLET 1 TABLET NEEDED ORALLY EVERY 6 HRS TAKING CYCLOBENZAPRINE HCL 10 MG TABLET 1 TABLET ORALLY 3X/DAY NEEDED TAKING PRIMIDONE 50 MG TABLET ORALLY TWICE DAILY TAKING ESCITALOPRAM OXALATE 10 MG TABLET 1 TABLET ORALLY ONCE A DAY TAKING AMLODIPINE BESYLATE 10 MG TABLET 1 TABLET ORALLY ONCE A DAY TAKING LIDOCAINE & ADHESIVE SHEETS 5 % (OINT) KIT EXTERNALLY ON 12HR OFF 12HR MEDICATION LIST REVIEWED AND RECONCILED WITH THE PATIENT PAST MEDICAL HISTORY DEPRESSION ANXIETY HTN GENERALIZED OSTEOARTHRITIS INTERVERTEBRAL DISC DEGENERATION LUMBAR RADICULOPATHY CERVICAL RADICULOPATHY NECK SPRAIN OSTEOARTHRITIS ALLERGIES SEASONAL: ITCHY EYES, SINUS CONGESTION: ALLERGY SURGICAL HISTORY RIGHT ROTATOR CUFF REPAIR X 2 SURGERIES CERVICAL FUSION C SPINE DISCECTOMY L SPINE LAMINECTOMY HOSPITALIZATION/MAJOR DIAGNOSTIC PROCEDURE UTI ABOVE SURGERIES REVIEW OF SYSTEMS CONSTITUTIONAL: ANY CHANGE IN YOUR MEDICAL CONDITION? NO . CHILLS NO . FEVER NO . INFECTION: DO YOU HAVE NEW INFECTIONS? NO . DO YOU HAVE HISTORY OF MRSA? NO . MUSCULOSKELETAL: ANY NEW PATTERNS OF PAIN OR NUMBNESS? NO . GASTROENTEROLOGY: ANY NEW CHANGE IN BOWEL CONTROL? NO . GENITOURINARY: ANY NEW CHANGE IN BLADDER CONTROL? NO . IS THERE A CHANCE YOU COULD BE ? NO . HEMATOLOGY/LYMPH: DO YOU TAKE ANY BLOOD THINNERS? (FOR EXAMPLE- COUMADIN, PLAVIX, AGGRENOX, PLATEL, PRADAXA, OR XARELTO) NO . WHEN WAS YOUR LAST DOSE? DATE: TIME: . NEUROLOGY: HAVE YOU FALLEN IN THE PAST 6 MONTHS? NO . ANY NEW EXTREMITY NUMBNESS OR WEAKNESS? NO . CARDIOLOGY: DO YOU HAVE A PACEMAKER OR DEFIBRILLATOR? NO . RESPIRATORY: HAVE YOU BEEN SICK IN THE PAST WEEK? NO . FEVER NO . FLU LIKE SYMPTOMS? NO . COUGH NO . INTEGUMENTARY: DO YOU HAVE ANY RASHES OR OPEN SORES? NO . ALLERGIC/IMMUNO: ARE YOU ALLERGIC TO SHELLFISH OR IV DYE? NO . ANY NEW ALLERGIES? NO . PSYCHIATRIC: DO YOU HAVE THOUGHTS OF HURTING YOURSELF OR SOMEONE ELSE? NO . ARE YOU ABUSED, NEGLECTED, OR IN AN UNSAFE ENVIRONMENT? NO . ENDOCRINOLOGY: ARE YOU DIABETIC? NO . OTHER: DO YOU NEED ANY PRESCRIPTIONS? NO . IF YES, PLEASE LIST: ____ . ANY NEW PROBLEMS WITH YOUR MEDICATIONS? NO . WHEN DID YOU LAST EAT? ____ . WHEN DID YOU LAST DRINK? ____ . WHAT DID YOU LAST DRINK? ____ . NAME OF PERSON DRIVING YOU HOME? ____ . DO YOU HAVE ANY OTHER QUESTIONS OR CONCERNS NO . REVIEWED BY: PROVIDER: MAYA LE . VITAL SIGNS WT 142.4 LBS, HT 5'5", BMI 23.69 INDEX, BP 144/79 MM HG, HR 69 /MIN, RR 16 /MIN, TEMP 97.6 F, OXYGEN SAT % 96%, NA INITIALS TL 0947. EXAMINATION GENERAL EXAMINATION: GENERAL APPEARANCE:NO ACUTE DISTRESS. NECK:NEG LYMPHADENOPATHY. LUNGS:LUNG SOUNDS ARE CLEAR.RESPIRATIONS NON-LABORED. ABDOMEN:SOFT, NON-TENDER, NO ORGANOMEGALY, BOWEL SOUNDS ARE NORMAL. LUMBAR SPINE/LOWER BACK: INSPECTION:NORMAL CURVATURE OF SPINE.WELL HEALED ONE INCH SURGICAL SCAR RGHT MID LUMBAR.. PALPATION:VERTEBRAL SPINE TENDERNESS, PARASPINAL TENDERNESS R>L. MOTOR SYSTEM:5/5 BLE. SENSORY EXAM:NORMAL. REFLEXES:2/4 AND SYMMETRIC BLE. GAIT:UNREMARKABLE. ASSESSMENTS LUMBAGO DUE TO DISPLACEMENT OF INTERVERTEBRAL DISC - M51.26 (PRIMARY) TREATMENT LUMBAGO DUE TO DISPLACEMENT OF INTERVERTEBRAL DISC [facility] MRI SPINE, L.S. WITHOUT [id number] PROCEDURE CODES FA211 ESTABILISHED PATIENT [facility] CHARGE DISPOSITION & COMMUNICATION FOLLOW UP HAS F/U ON 11-22 ELECTRONICALLY SIGNED BY REY NETTLES ON 11/21/2016 AT 04:17 PM EDT DISCLAIMER : THIS IS A VISIT SUMMARY EXTRACTED FROM THE [employer] CHART. IT IS NOT A COPY OF THE [employer] PROGRESS NOTE. [employer]
== END ==
LOC: M PAIN 09:40
PROVIDERS: ATTEND Nurse Practitioner Family
DX: G89.21 Chronic pain due to trauma (principal); M51.26 Other intervertebral disc displacement, lumbar region; F32.9 Major depressive disorder, single episode, unspecified; F41.9 Anxiety disorder, unspecified; I10 Essential (primary) hypertension; M15.0 Primary generalized (osteo)arthritis; J30.2 Other seasonal allergic rhinitis; Z79.82 Long term (current) use of aspirin; Z79.899 Other long term (current) drug therapy

== ENCOUNTER → 2016-11-22 | Outpatient (CLI) | payer BC, MEDICARE ==
--- NOTE | 2016-11-23 00:22 | ECWPNPC ---
PATIENT NAME: FRANKO MOLINA : 1965 GENDER: MALE VISIT DATE: 11/22/2016 DISCHARGE DATE: 11/22/16 1202 VISIT LOCKED DATE TIME: PHYSICIAN: MAYA GARCIA RESOURCE: MAYA GARCIA REASON FOR APPOINTMENT 1. POST INJ HISTORY OF PRESENT ILLNESS HISTORY OF PRESENT ILLNESS: HERE FOR POST PROCEDURE F/U.HAD BILATERAL CERVICAL FACET THERAPEUTIC BLOCK ON 11-02-16.REPORTS >50% IMPROVEMENT IN PAIN THAT CONTINUES TODAY.CHIEF AREA OF PAIN LOW BACK.RATING PAIN VAS 0-8/10.DESCRIBES PAIN INTERMITTENT AND SHARP LOW BACK PAIN THAT RADIATES INTO LEGS.PAIN IS AGGREVATED BY BOWEL MOVEMENTS AND URINATING WHEN PAIN IS FLARED. FALL RISK SCREENING: SCREENING :NO FALLS IN THE PAST YEAR CURRENT MEDICATIONS TAKING ASPIR-81 81 MG TABLET DELAYED RELEASE 1 TABLET ORALLY ONCE A DAY TAKING CELEBREX 200 MG CAPSULE 1 CAPSULE ORALLY ONCE A DAY TAKING LISINOPRIL 10 MG TABLET 1 TABLET ORALLY TWICE A DAY TAKING ZYRTEC ALLERGY 10 MG TABLET 1 TABLET ORALLY ONCE A DAY TAKING PERCOCET 5-325 MG TABLET 1 TABLET NEEDED ORALLY EVERY 6 HRS TAKING CYCLOBENZAPRINE HCL 10 MG TABLET 1 TABLET ORALLY 3X/DAY NEEDED TAKING PRIMIDONE 50 MG TABLET ORALLY TWICE DAILY TAKING ESCITALOPRAM OXALATE 10 MG TABLET 1 TABLET ORALLY ONCE A DAY TAKING AMLODIPINE BESYLATE 10 MG TABLET 1 TABLET ORALLY ONCE A DAY TAKING LIDOCAINE & ADHESIVE SHEETS 5 % (OINT) KIT EXTERNALLY ON 12HR OFF 12HR MEDICATION LIST REVIEWED AND RECONCILED WITH THE PATIENT PAST MEDICAL HISTORY DEPRESSION ANXIETY HTN GENERALIZED OSTEOARTHRITIS INTERVERTEBRAL DISC DEGENERATION LUMBAR RADICULOPATHY CERVICAL RADICULOPATHY NECK SPRAIN OSTEOARTHRITIS ALLERGIES SEASONAL: ITCHY EYES, SINUS CONGESTION: ALLERGY SURGICAL HISTORY RIGHT ROTATOR CUFF REPAIR X 2 SURGERIES CERVICAL FUSION C SPINE DISCECTOMY L SPINE LAMINECTOMY HOSPITALIZATION/MAJOR DIAGNOSTIC PROCEDURE UTI ABOVE SURGERIES REVIEW OF SYSTEMS CONSTITUTIONAL: ANY CHANGE IN YOUR MEDICAL CONDITION? NO . CHILLS NO . FEVER NO . INFECTION: DO YOU HAVE NEW INFECTIONS? NO . DO YOU HAVE HISTORY OF MRSA? NO . MUSCULOSKELETAL: ANY NEW PATTERNS OF PAIN OR NUMBNESS? NO. PT STATES BILAT CERVICAL FACET BLOCK DONE 11/02/16. PRE PROCEDURE PAIN WAS 7/10. POST PROCEDURE PAIN FREE, NOW CREEPING UP TO 2-3/10. . GASTROENTEROLOGY: ANY NEW CHANGE IN BOWEL CONTROL? NO . GENITOURINARY: ANY NEW CHANGE IN BLADDER CONTROL? NO . IS THERE A CHANCE YOU COULD BE ? NO . HEMATOLOGY/LYMPH: DO YOU TAKE ANY BLOOD THINNERS? (FOR EXAMPLE- COUMADIN, PLAVIX, AGGRENOX, PLATEL, PRADAXA, OR XARELTO) NO . WHEN WAS YOUR LAST DOSE? DATE: TIME: . NEUROLOGY: HAVE YOU FALLEN IN THE PAST 6 MONTHS? NO . ANY NEW EXTREMITY NUMBNESS OR WEAKNESS? NO . CARDIOLOGY: DO YOU HAVE A PACEMAKER OR DEFIBRILLATOR? NO . RESPIRATORY: HAVE YOU BEEN SICK IN THE PAST WEEK? NO . FEVER NO . FLU LIKE SYMPTOMS? NO . COUGH NO . INTEGUMENTARY: DO YOU HAVE ANY RASHES OR OPEN SORES? NO . ALLERGIC/IMMUNO: ARE YOU ALLERGIC TO SHELLFISH OR IV DYE? NO . ANY NEW ALLERGIES? NO . PSYCHIATRIC: DO YOU HAVE THOUGHTS OF HURTING YOURSELF OR SOMEONE ELSE? NO . ARE YOU ABUSED, NEGLECTED, OR IN AN UNSAFE ENVIRONMENT? NO . ENDOCRINOLOGY: ARE YOU DIABETIC? NO . OTHER: DO YOU NEED ANY PRESCRIPTIONS? NO . IF YES, PLEASE LIST: ____ . ANY NEW PROBLEMS WITH YOUR MEDICATIONS? NO . WHEN DID YOU LAST EAT? ____ . WHEN DID YOU LAST DRINK? ____ . WHAT DID YOU LAST DRINK? ____ . NAME OF PERSON DRIVING YOU HOME? ____ . DO YOU HAVE ANY OTHER QUESTIONS OR CONCERNS NO . REVIEWED BY: PROVIDER: MAYA LE . VITAL SIGNS WT 155.6 LBS, HT 65", BMI 25.89 INDEX, BP 150/92 MM HG, HR 73 /MIN, RR 16 /MIN, TEMP 97.4 F, OXYGEN SAT % 96%, SAFE IN ENV? (Y/N) Y, NA INITIALS TL 1027, REVIEWED BY: EM. EXAMINATION GENERAL EXAMINATION: GENERAL APPEARANCE:NO ACUTE DISTRESS. NECK:NEG LYMPHADENOPATHY. LUNGS:LUNG SOUNDS ARE CLEAR.RESPIRATIONS NON-LABORED. ABDOMEN:SOFT, NON-TENDER, NO ORGANOMEGALY, BOWEL SOUNDS ARE NORMAL. DIAGNOSTIC DATA-MRI L/S SPINE 11-06-14-REVIEWED. LUMBAR SPINE/LOWER BACK: INSPECTION:NORMAL CURVATURE OF SPINE.WELL HEALED ONE INCH SURGICAL SCAR RGHT MID LUMBAR.. PALPATION:VERTEBRAL SPINE TENDERNESS, PARASPINAL TENDERNESS R>L. MOTOR SYSTEM:5/5 BLE. SENSORY EXAM:NORMAL. REFLEXES:2/4 AND SYMMETRIC BLE. GAIT:UNREMARKABLE. ASSESSMENTS SPONDYLOSIS WITHOUT MYELOPATHY OR RADICULOPATHY, CERVICAL REGION - M47.812 (PRIMARY) LUMBAR SPONDYLOSIS - M47.816 TREATMENT SPONDYLOSIS WITHOUT MYELOPATHY OR RADICULOPATHY, CERVICAL REGION NOTES: I AM GOING TO REQUEST A BILATERAL THERAPEUTIC LUMBAR FACET BLOCK L3/4-L4/5. PROCEDURE CODES FA211 ESTABILISHED PATIENT [facility] CHARGE DISPOSITION & COMMUNICATION FOLLOW UP 2WK POST (REASON: I AM GOING TO REQUEST A BILATERAL THERAPEUTIC LUMBAR FACET BLOCK L3/4-L4/5) ELECTRONICALLY SIGNED BY REY NETTLES ON 11/22/2016 AT 02:39 PM EDT DISCLAIMER : THIS IS A VISIT SUMMARY EXTRACTED FROM THE [facility] CHART. IT IS NOT A COPY OF THE [facility] PROGRESS NOTE. [facility]
== END ==
LOC: M PAIN 10:20
PROVIDERS: ATTEND Nurse Practitioner Family
DX: G89.29 Other chronic pain (principal); M47.812 Spondylosis without myelopathy or radiculopathy, cervical region; M47.816 Spondylosis without myelopathy or radiculopathy, lumbar region; F32.9 Major depressive disorder, single episode, unspecified; F41.9 Anxiety disorder, unspecified; I10 Essential (primary) hypertension; M15.0 Primary generalized (osteo)arthritis; J30.2 Other seasonal allergic rhinitis; Z79.82 Long term (current) use of aspirin; Z79.899 Other long term (current) drug therapy

== ENCOUNTER → 2016-11-30 | Outpatient (CLI) | payer BC, MEDICARE ==
--- NOTE | 2016-11-30 13:07 | REP ---
FACET BLOCK: The images were reviewed with Dr. Martins. The patient has a history of low back pain. The portable C-arm was provided in the OR for Dr. Velazquez for fluoroscopy guidance. Two intraoperative fluoroscopic spot films were obtained for needle placement verification for bilateral lumbar facet injection. The films are on the PACs system and are available for review. 28 seconds of fluoroscopic time was utilized for this procedure. Reviewed by BRITTANI Hinson 12/01/2016 04:14 PEdited and Signed by Ashish Martins MD 12/01/2016 04:21 P
--- NOTE | 2016-12-10 23:40 | ECWPNPC ---
PATIENT NAME: FRANKO MOLINA : 1965 GENDER: MALE VISIT DATE: 11/30/2016 DISCHARGE DATE: 11/30/16 1016 VISIT LOCKED DATE TIME: PHYSICIAN: DEBBIE YE RESOURCE: DEBBIE YE REASON FOR APPOINTMENT 1. LUMBAR FACET, THER HISTORY OF PRESENT ILLNESS HISTORY OF PRESENT ILLNESS: PAIN THE PATIENT DESCRIBES THE PAIN... FALL RISK SCREENING: SCREENING :NO FALLS IN THE PAST YEAR CURRENT MEDICATIONS TAKING ASPIR-81 81 MG TABLET DELAYED RELEASE 1 TABLET ORALLY ONCE A DAY, NOTES: 11/30/16599 TAKING CELEBREX 200 MG CAPSULE 1 CAPSULE ORALLY ONCE A DAY, NOTES: 11/30/16599 TAKING LISINOPRIL 10 MG TABLET 1 TABLET ORALLY TWICE A DAY, NOTES: 11/30/16599 TAKING ZYRTEC ALLERGY 10 MG TABLET 1 TABLET ORALLY ONCE A DAY, NOTES: 11/30/16599 TAKING PERCOCET 5-325 MG TABLET 1 TABLET NEEDED ORALLY EVERY 6 HRS, NOTES: NONE RECENT TAKING CYCLOBENZAPRINE HCL 10 MG TABLET 1 TABLET ORALLY 3X/DAY NEEDED, NOTES: NONE RECENT TAKING PRIMIDONE 50 MG TABLET ORALLY TWICE DAILY, NOTES: 11/30/16599 TAKING ESCITALOPRAM OXALATE 10 MG TABLET 1 TABLET ORALLY ONCE A DAY, NOTES: 11/30/16 TAKING AMLODIPINE BESYLATE 10 MG TABLET 1 TABLET ORALLY ONCE A DAY, NOTES: 11/30/16599 TAKING LIDOCAINE & ADHESIVE SHEETS 5 % (OINT) KIT EXTERNALLY ON 12HR OFF 12HR, NOTES: 1 WEEK AGO MEDICATION LIST REVIEWED AND RECONCILED WITH THE PATIENT PAST MEDICAL HISTORY DEPRESSION ANXIETY HTN GENERALIZED OSTEOARTHRITIS INTERVERTEBRAL DISC DEGENERATION LUMBAR RADICULOPATHY CERVICAL RADICULOPATHY NECK SPRAIN OSTEOARTHRITIS ALLERGIES SEASONAL: ITCHY EYES, SINUS CONGESTION: ALLERGY SOCIAL HISTORY GENERAL: TOBACCO USE ADDITIONAL FINDINGS: TOBACCO USERCHEWS TOBACCO SMOKING CESSATION INFORMATION GIVEN10/23/2016 PAIN CLINIC PFS, CLERGY, PUBLIC HEALTH REFERRALS CLERGY REFERRAL NEEDED?NO WAS THE PROVIDER NOTIFIED OF ANY PERTINENT INFO?NO PFS REFERRAL NEEDED?NO PUBLIC HEALTH REFERRAL NEEDED?NO PATIENT: ____. REVIEW OF SYSTEMS CONSTITUTIONAL: ANY CHANGE IN YOUR MEDICAL CONDITION? NO . CHILLS NO . FEVER NO . INFECTION: DO YOU HAVE NEW INFECTIONS? NO . DO YOU HAVE HISTORY OF MRSA? NO . MUSCULOSKELETAL: ANY NEW PATTERNS OF PAIN OR NUMBNESS? NO . GASTROENTEROLOGY: ANY NEW CHANGE IN BOWEL CONTROL? NO . GENITOURINARY: ANY NEW CHANGE IN BLADDER CONTROL? NO . IS THERE A CHANCE YOU COULD BE ? NO . HEMATOLOGY/LYMPH: DO YOU TAKE ANY BLOOD THINNERS? (FOR EXAMPLE- COUMADIN, PLAVIX, AGGRENOX, PLATEL, PRADAXA, OR XARELTO) NO . WHEN WAS YOUR LAST DOSE? DATE: TIME: . NEUROLOGY: HAVE YOU FALLEN IN THE PAST 6 MONTHS? NO . ANY NEW EXTREMITY NUMBNESS OR WEAKNESS? NO . CARDIOLOGY: DO YOU HAVE A PACEMAKER OR DEFIBRILLATOR? NO . RESPIRATORY: HAVE YOU BEEN SICK IN THE PAST WEEK? NO . FEVER NO . FLU LIKE SYMPTOMS? NO . COUGH NO . INTEGUMENTARY: DO YOU HAVE ANY RASHES OR OPEN SORES? NO . ALLERGIC/IMMUNO: ARE YOU ALLERGIC TO SHELLFISH OR IV DYE? NO . ANY NEW ALLERGIES? NO . PSYCHIATRIC: DO YOU HAVE THOUGHTS OF HURTING YOURSELF OR SOMEONE ELSE? NO . ARE YOU ABUSED, NEGLECTED, OR IN AN UNSAFE ENVIRONMENT? NO . ENDOCRINOLOGY: ARE YOU DIABETIC? NO . OTHER: DO YOU NEED ANY PRESCRIPTIONS? NO . IF YES, PLEASE LIST: ____ . ANY NEW PROBLEMS WITH YOUR MEDICATIONS? NO . WHEN DID YOU LAST EAT? 11/29/16 2100 . WHEN DID YOU LAST DRINK? 11/30/16 0600 . WHAT DID YOU LAST DRINK? SIP OF WATER WITH MEDS . NAME OF PERSON DRIVING YOU HOME? SON, QUE . DO YOU HAVE ANY OTHER QUESTIONS OR CONCERNS NO . REVIEWED BY: PROVIDER: . VITAL SIGNS WT 150.0 LBS, HT 65", BMI 24.96 INDEX, BP 171/94 MM HG, HR 86 /MIN, RR 16 /MIN, TEMP 97.6 F, OXYGEN SAT % 98%, NA INITIALS TL 0914, REVIEWED BY: AD. ASSESSMENTS SPONDYLOSIS WITHOUT MYELOPATHY OR RADICULOPATHY, LUMBOSACRAL REGION - M47.817 (PRIMARY) PROCEDURES PN LUMBAR FACET BLOCK THERAPEUTIC PRE PROCEDURE DIAGNOSIS LUMBOSACRAL SPONDYLOSIS POST PROCEDURE DIAGNOSIS LUMBOSACRAL SPONDYLOSIS PROCEDURE BILATERAL L5-S1 LUMBAR FACET THERAPEUTIC BLOCK SURGEON DR. DEBBIE YE ANTIQUE JEWELRY REPAIRER NONE ANESTHESIA LOCAL PRE PROCEDURE NOTE THE PATIENT HAS A HISTORY OF CHRONIC LOW BACK PAIN. I EVALUATE THE PATIENT AND REVIEWED THE CHART. I WENT OVER THE RISKS, ALTERNATIVES, AND BENEFITS ASSOCIATED WITH THIS PROCEDURE. THE PATIENT WOULD LIKE TO PROCEED AND GIVE CONSENT TO PERFORMED THE PROCEDURE. THE PATIENT DENIES UNEXPLAINABLE WEIGHT LOSS, FEVER, CHILLS, OR NEW CHANGES IN URINARY OR BOWEL CONTROL DESCRIPTION OF PROCEDURE THE PATIENT WAS BROUGHT TO THE PROCEDURE ROOM AND PLACED IN THE PRONE POSITION. THE LUMBOSACRAL AREA WAS CLEANED WITH CHLORAPREP SOLUTION AND DRAPED ASEPTICALLY. THE PROCEDURE WAS DONE UNDER STERILE CONDITIONS. I CHECKED LATERALITY AND THE LEVEL WHERE THE PROCEDURE WAS GOING TO BE PERFORMED WITH THE PATIENT AND THE SUPPORTING STAFF AT THE MOMENT OF THE TIME OUT IN THE PROCEDURE ROOM. UNDER FLUOROSCOPIC GUIDANCE, THE TARGET POINT WAS SELECTED AT THE RIGHT AND LEFT L5-S1 FACET JOINT. TARGET POINT WAS SELECTED AFTER LATERAL ROTATION AND TILT OF THE MAGNIFIER OF THE C-ARM. LIDOCAINE 0.5% WAS USED TO NUMB THE SKIN AND THE SUBCUTANEOUS TISSUE BELOW IT. SPINAL NEEDLES, 22-GAUGE, WERE ADVANCED UNDER FLUOROSCOPIC GUIDANCE AND FOLLOWING PATIENT FEEDBACK UNTIL THE TARGETS WERE TOUCHED. THE POSITION OF THE NEEDLES WAS VERIFIED WITH AP AND LATERAL VIEWS. AFTER PROPER POSITION OF THE NEEDLES WAS ACHIEVED, ISOVUE-M DYE 30% 0.1 ML WAS INJECTED SHOWING ADEQUATE SPREAD OF THE DYE. THEN A SOLUTION OF 1.9 ML OF BUPIVACAINE 0.125% OF KENALOG 10 MG WAS INJECTED AT EACH SITE. THERE WAS NO EVIDENCE OF BLOOD, PARESTHESIA OR CEREBROSPINAL FLUID DURING THE PROCEDURE. THE PATIENT WAS SENT TO THE RECOVERY ROOM. THE PATIENT WAS MOVING THE EXTREMITIES AND DOING WELL. THERE WAS NO COMPLICATION DURING THE PROCEDURE. FLUOROSCOPY TIME WAS 28 SECONDS POST PROCEDURE NOTE THE PATIENT WILL BE SEEN IN A FOLLOW UP IN THE NEXT FEW WEEKS. INSTRUCTIONS WERE GIVEN, QUESTIONS WERE ANSWERED, AND THE PATIENT EXPRESSED UNDERSTANDING AND AGREES WITH THE PLAN. I, YE ENRIQUEZ, DOCUMENTED THE ABOVE INFORMATION ACTING A SCRIBE FOR DR. YE. I HAVE REVIEWED THE ABOVE DOCUMENT, WRITTEN BY YE ENRIQUEZ SCRIBМарина AND I VERIFY THAT IT IS [facility]UR[facility] DIAGNOSTIC IMAGING [facility] FACET BLOCK (PAIN)[id number] PROCEDURE CODES 19871 INJ PARAVERT F JNT L/S 1 LEV 6045F RADXPS IN END [id number] PXD DISPOSITION & COMMUNICATION FOLLOW UP 3 WEEKS ELECTRONICALLY SIGNED BY DEBBIE YE MD ON 12/10/2016 AT 07:04 PM EDT DISCLAIMER : THIS IS A VISIT SUMMARY EXTRACTED FROM THE [employer] CHART. IT IS NOT A COPY OF THE [employer] PROGRESS NOTE. MTDD
== END ==
LOC: M PAIN 09:00
PROVIDERS: ATTEND Anesthesiology
DX: G89.29 Other chronic pain (principal); M47.817 Spondylosis without myelopathy or radiculopathy, lumbosacral region; F32.9 Major depressive disorder, single episode, unspecified; F41.9 Anxiety disorder, unspecified; I10 Essential (primary) hypertension; M15.0 Primary generalized (osteo)arthritis; J30.2 Other seasonal allergic rhinitis; F17.228 Nicotine dependence, chewing tobacco, with other nicotine-induced disorders; Z79.82 Long term (current) use of aspirin; Z79.891 Long term (current) use of opiate analgesic; Z79.899 Other long term (current) drug therapy
CPT/HCPCS: 64493; J3301; Q9967

== ENCOUNTER → 2017-01-03 | Outpatient (CLI) | payer BC, MEDICARE ==
--- NOTE | 2017-01-16 00:50 | ECWPNPC ---
PATIENT NAME: FRANKO MOLINA : 1965 GENDER: MALE VISIT DATE: 01/03/2017 DISCHARGE DATE: 01/03/17931 VISIT LOCKED DATE TIME: PHYSICIAN: MAYA GARCIA RESOURCE: MAYA GARCIA REASON FOR APPOINTMENT 1. BACK HISTORY OF PRESENT ILLNESS HISTORY OF PRESENT ILLNESS: HERE FOR F/U AND MANAGEMENT OF CHRONIC LOW BACK AND NECK PAIN.REPORTS FLARE UP OF LOW BACK PAIN GETTING OUT OF CAR LAST WEEK.PAIN RADIATES TO LEFT LEG.RATING PAIN VAS 5/10.DESCRIBES PAIN SHARP AND ACHING.PAIN IS AGGREVATED WITH STANDING ,WALKING AND SITTING.RELIEVED SOMEWHAT WITH RECLINING. PAIN THE PATIENT DESCRIBES THE PAIN... FALL RISK SCREENING: SCREENING :NO FALLS IN THE PAST YEAR CURRENT MEDICATIONS TAKING ASPIR-81 81 MG TABLET DELAYED RELEASE 1 TABLET ORALLY ONCE A DAY, NOTES: 11/30/16599 TAKING CELEBREX 200 MG CAPSULE 1 CAPSULE ORALLY ONCE A DAY, NOTES: 11/30/16599 TAKING LISINOPRIL 10 MG TABLET 1 TABLET ORALLY TWICE A DAY, NOTES: 11/30/16599 TAKING ZYRTEC ALLERGY 10 MG TABLET 1 TABLET ORALLY ONCE A DAY, NOTES: 11/30/16599 TAKING PERCOCET 5-325 MG TABLET 1 TABLET NEEDED ORALLY EVERY 6 HRS, NOTES: NONE RECENT TAKING CYCLOBENZAPRINE HCL 10 MG TABLET 1 TABLET ORALLY 3X/DAY NEEDED, NOTES: NONE RECENT TAKING PRIMIDONE 50 MG TABLET ORALLY TWICE DAILY, NOTES: 11/30/16599 TAKING ESCITALOPRAM OXALATE 10 MG TABLET 1 TABLET ORALLY ONCE A DAY, NOTES: 11/30/16 TAKING AMLODIPINE BESYLATE 10 MG TABLET 1 TABLET ORALLY ONCE A DAY, NOTES: 11/30/16599 TAKING LIDOCAINE & ADHESIVE SHEETS 5 % (OINT) KIT EXTERNALLY ON 12HR OFF 12HR, NOTES: 1 WEEK AGO MEDICATION LIST REVIEWED AND RECONCILED WITH THE PATIENT PAST MEDICAL HISTORY DEPRESSION ANXIETY HTN GENERALIZED OSTEOARTHRITIS INTERVERTEBRAL DISC DEGENERATION LUMBAR RADICULOPATHY CERVICAL RADICULOPATHY NECK SPRAIN OSTEOARTHRITIS ALLERGIES SEASONAL: ITCHY EYES, SINUS CONGESTION: ALLERGY SURGICAL HISTORY RIGHT ROTATOR CUFF REPAIR X 2 SURGERIES CERVICAL FUSION C SPINE DISCECTOMY L SPINE LAMINECTOMY HOSPITALIZATION/MAJOR DIAGNOSTIC PROCEDURE UTI ABOVE SURGERIES REVIEW OF SYSTEMS REVIEWED BY: PROVIDER: MAYA GARCIA HEALTHCARE MARKET CONSULTANT . CONSTITUTIONAL: ANY CHANGE IN YOUR MEDICAL CONDITION? NO . CHILLS NO . FEVER NO . INFECTION: DO YOU HAVE NEW INFECTIONS? NO . DO YOU HAVE HISTORY OF MRSA? NO . MUSCULOSKELETAL: ANY NEW PATTERNS OF PAIN OR NUMBNESS? YES PT HAD LFBT 11/30/16, WITH EXCELLENT RESULTS , A 0/10 LEVEL, THAT LASTED ONLY 3 WEEKS, THEN BACK PAIN RETURNED SUDDENLY, TO AN 8/10. ALSO STATES NUMBNESS IS BACK IN RIGHT FOOT. . GASTROENTEROLOGY: ANY NEW CHANGE IN BOWEL CONTROL? NO . GENITOURINARY: ANY NEW CHANGE IN BLADDER CONTROL? NO . IS THERE A CHANCE YOU COULD BE ? NO . HEMATOLOGY/LYMPH: DO YOU TAKE ANY BLOOD THINNERS? (FOR EXAMPLE- COUMADIN, PLAVIX, AGGRENOX, PLATEL, PRADAXA, OR XARELTO) NO . WHEN WAS YOUR LAST DOSE? DATE: TIME: . NEUROLOGY: HAVE YOU FALLEN IN THE PAST 6 MONTHS? YES PT REPORTS HE DIDN'T LIFT HIS FOOT HIGH ENOUGH DUE TO PAIN IN LEFT LEG, AND CAUGHT HIS HEEL. PT DENIES INJURIES FROM FALL, NO ED VISIT.&NBSP;. ANY NEW EXTREMITY NUMBNESS OR WEAKNESS? &NBSP;&NBSP; NO&NBSP;. CARDIOLOGY: DO YOU HAVE A PACEMAKER OR DEFIBRILLATOR? NO . RESPIRATORY: HAVE YOU BEEN SICK IN THE PAST WEEK? NO . FEVER NO . FLU LIKE SYMPTOMS? NO . COUGH NO . INTEGUMENTARY: DO YOU HAVE ANY RASHES OR OPEN SORES? YES PT HAD SOME WARTS REMOVED RIGHT WRIST, AND HAS SOME OPEN AREAS. . ALLERGIC/IMMUNO: ARE YOU ALLERGIC TO SHELLFISH OR IV DYE? NO . ANY NEW ALLERGIES? NO . PSYCHIATRIC: DO YOU HAVE THOUGHTS OF HURTING YOURSELF OR SOMEONE ELSE? NO . ARE YOU ABUSED, NEGLECTED, OR IN AN UNSAFE ENVIRONMENT? NO . ENDOCRINOLOGY: ARE YOU DIABETIC? NO . OTHER: DO YOU NEED ANY PRESCRIPTIONS? NO . IF YES, PLEASE LIST: ____ . ANY NEW PROBLEMS WITH YOUR MEDICATIONS? NO . WHEN DID YOU LAST EAT? ____ . WHEN DID YOU LAST DRINK? ____ . WHAT DID YOU LAST DRINK? ____ . NAME OF PERSON DRIVING YOU HOME? ____ . DO YOU HAVE ANY OTHER QUESTIONS OR CONCERNS NO . VITAL SIGNS WT 159 LBS, HT 65", BMI 26.46 INDEX, BP 13/85 MM HG, HR 65 /MIN, RR 16 /MIN, TEMP 97.6 F, OXYGEN SAT % 97%, SAFE IN ENV? (Y/N) YES, REVIEWED BY: TAJ. EXAMINATION GENERAL EXAMINATION: GENERAL APPEARANCE:NO ACUTE DISTRESS. NECK:NEG LYMPHADENOPATHY. LUNGS:LUNG SOUNDS ARE CLEAR.RESPIRATIONS NON-LABORED. ABDOMEN:SOFT, NON-TENDER, NO ORGANOMEGALY, BOWEL SOUNDS ARE NORMAL. DIAGNOSTIC DATA-MRI L/S SPINE 11-06-14-REVIEWED. LUMBAR SPINE/LOWER BACK: INSPECTION:NORMAL CURVATURE OF SPINE.WELL HEALED ONE INCH SURGICAL SCAR RGHT MID LUMBAR.. PALPATION:VERTEBRAL SPINE TENDERNESS, PARASPINAL TENDERNESS L>R. MOTOR SYSTEM:5/5 BLE. SENSORY EXAM:NORMAL. REFLEXES:2/4 AND SYMMETRIC BLE. GAIT:UNREMARKABLE. ASSESSMENTS SPONDYLOSIS WITHOUT MYELOPATHY OR RADICULOPATHY, CERVICAL REGION - M47.812 (PRIMARY) LUMBAR SPONDYLOSIS - M47.816 TREATMENT SPONDYLOSIS WITHOUT MYELOPATHY OR RADICULOPATHY, CERVICAL REGION NOTES: L4/5-INTRALAMINAL LESIPATIENT WILL CALL US WITH NAME OF SURGEON HE WANTS US TO REFER TO. PROCEDURE CODES FA211 ESTABILISHED PATIENT [facility] CHARGE DISPOSITION & COMMUNICATION FOLLOW UP 2WK POST (REASON: L4/5-INTRALAMINAL LESI) ELECTRONICALLY SIGNED BY REY NETTLES ON 01/15/2017 AT 04:22 PM EDT DISCLAIMER : THIS IS A VISIT SUMMARY EXTRACTED FROM THE [employer] CHART. IT IS NOT A COPY OF THE [employer] PROGRESS NOTE. KAMALJIT
== END ==
LOC: M PAIN 08:40
PROVIDERS: ATTEND Nurse Practitioner Family
DX: G89.29 Other chronic pain (principal); M47.812 Spondylosis without myelopathy or radiculopathy, cervical region; M47.816 Spondylosis without myelopathy or radiculopathy, lumbar region; F32.9 Major depressive disorder, single episode, unspecified; F41.9 Anxiety disorder, unspecified; I10 Essential (primary) hypertension; M15.0 Primary generalized (osteo)arthritis; J30.89 Other allergic rhinitis; Z79.82 Long term (current) use of aspirin; Z79.899 Other long term (current) drug therapy

== ENCOUNTER → 2017-01-16 | Outpatient (CLI) | payer BC, MEDICARE ==
[~2017-01-16] MED LIST changes: -BUPIVACAINE HCL 0.25% 30 ML VIAL As Ordered ONE; -TRIAMCINOLONE ACETONIDE SUSP 40 MG/ML VIAL (J3301) As Ordered ONE; +methylPREDNISolone SUSP 40 MG/ML (DEPO-medrol) VIAL (J1030) As Ordered ONE
--- NOTE | 2017-01-16 10:21 | REP ---
Partial lumbar spine series: Two views . History: Injection procedure for pain. Five seconds of fluoroscopy time is reported. Findings: A sequence of five fluoroscopically obtained last image hold procedural spot radiographs of the lumbar spine document needle position and contrast injection associated with injection procedure. Signed by Nimesh Veras MD 01/16/2017 10:11 A
--- NOTE | 2017-01-28 23:40 | ECWPNPC ---
PATIENT NAME: FRANKO MOLINA : 1965 GENDER: MALE VISIT DATE: 01/16/2017 DISCHARGE DATE: 01/16/17 1032 VISIT LOCKED DATE TIME: PHYSICIAN: DEBBIE YE RESOURCE: DEBBIE YE REASON FOR APPOINTMENT 1. L4/5-INTRALAMINAL LESI HISTORY OF PRESENT ILLNESS HISTORY OF PRESENT ILLNESS: PAIN THE PATIENT DESCRIBES THE PAIN... FALL RISK SCREENING: SCREENING :NO FALLS IN THE PAST YEAR CURRENT MEDICATIONS TAKING ASPIR-81 81 MG TABLET DELAYED RELEASE 1 TABLET ORALLY ONCE A DAY, NOTES: 01/16/17629 TAKING CELEBREX 200 MG CAPSULE 1 CAPSULE ORALLY ONCE A DAY, NOTES: 01/16/17629 TAKING LISINOPRIL 10 MG TABLET 1 TABLET ORALLY TWICE A DAY, NOTES: 01/16/17629 TAKING ZYRTEC ALLERGY 10 MG TABLET 1 TABLET ORALLY ONCE A DAY, NOTES: 01/16/17629 TAKING PERCOCET 5-325 MG TABLET 1 TABLET NEEDED ORALLY EVERY 6 HRS, NOTES: NONE RECENT TAKING CYCLOBENZAPRINE HCL 10 MG TABLET 1 TABLET ORALLY 3X/DAY NEEDED, NOTES: NONE RECENT TAKING PRIMIDONE 50 MG TABLET ORALLY TWICE DAILY, NOTES: 01/16/17629 TAKING ESCITALOPRAM OXALATE 10 MG TABLET 1 TABLET ORALLY ONCE A DAY, NOTES: 01/16/17629 TAKING AMLODIPINE BESYLATE 10 MG TABLET 1 TABLET ORALLY ONCE A DAY, NOTES: 01/16/17629 TAKING LIDOCAINE & ADHESIVE SHEETS 5 % (OINT) KIT EXTERNALLY ON 12HR OFF 12HR, NOTES: 12/30/16 MEDICATION LIST REVIEWED AND RECONCILED WITH THE PATIENT PAST MEDICAL HISTORY DEPRESSION ANXIETY HTN GENERALIZED OSTEOARTHRITIS INTERVERTEBRAL DISC DEGENERATION LUMBAR RADICULOPATHY CERVICAL RADICULOPATHY NECK SPRAIN OSTEOARTHRITIS ALLERGIES SEASONAL: ITCHY EYES, SINUS CONGESTION: ALLERGY SURGICAL HISTORY RIGHT ROTATOR CUFF REPAIR X 2 SURGERIES CERVICAL FUSION C SPINE DISCECTOMY L SPINE LAMINECTOMY SOCIAL HISTORY GENERAL: TOBACCO USE ADDITIONAL FINDINGS: TOBACCO USERCHEWS TOBACCO SMOKING CESSATION INFORMATION GIVEN10/23/2016 PAIN CLINIC PFS, CLERGY, PUBLIC HEALTH REFERRALS CLERGY REFERRAL NEEDED?NO WAS THE PROVIDER NOTIFIED OF ANY PERTINENT INFO?NO PFS REFERRAL NEEDED?NO PUBLIC HEALTH REFERRAL NEEDED?NO PATIENT: ____. HOSPITALIZATION/MAJOR DIAGNOSTIC PROCEDURE UTI ABOVE SURGERIES REVIEW OF SYSTEMS REVIEWED BY: PROVIDER: . CONSTITUTIONAL: ANY CHANGE IN YOUR MEDICAL CONDITION? NO . CHILLS NO . FEVER NO . INFECTION: DO YOU HAVE NEW INFECTIONS? NO . DO YOU HAVE HISTORY OF MRSA? NO . MUSCULOSKELETAL: ANY NEW PATTERNS OF PAIN OR NUMBNESS? NO . GASTROENTEROLOGY: ANY NEW CHANGE IN BOWEL CONTROL? NO . GENITOURINARY: ANY NEW CHANGE IN BLADDER CONTROL? NO . IS THERE A CHANCE YOU COULD BE ? NO . HEMATOLOGY/LYMPH: DO YOU TAKE ANY BLOOD THINNERS? (FOR EXAMPLE- COUMADIN, PLAVIX, AGGRENOX, PLATEL, PRADAXA, OR XARELTO) NO . WHEN WAS YOUR LAST DOSE? DATE: TIME: . NEUROLOGY: HAVE YOU FALLEN IN THE PAST 6 MONTHS? YES, PT STATES HE TRIPPED ONLEFT FOOT ON [place] GROUND 12/30/16. PT DENIES SEEKING MEDICAL ATTENTION FOR FALL . ANY NEW EXTREMITY NUMBNESS OR WEAKNESS? NO . CARDIOLOGY: DO YOU HAVE A PACEMAKER OR DEFIBRILLATOR? NO . RESPIRATORY: HAVE YOU BEEN SICK IN THE PAST WEEK? NO . FEVER NO . FLU LIKE SYMPTOMS? NO . COUGH NO . INTEGUMENTARY: DO YOU HAVE ANY RASHES OR OPEN SORES? NO . ALLERGIC/IMMUNO: ARE YOU ALLERGIC TO SHELLFISH OR IV DYE? NO . ANY NEW ALLERGIES? NO . PSYCHIATRIC: DO YOU HAVE THOUGHTS OF HURTING YOURSELF OR SOMEONE ELSE? NO . ARE YOU ABUSED, NEGLECTED, OR IN AN UNSAFE ENVIRONMENT? NO . ENDOCRINOLOGY: ARE YOU DIABETIC? NO . OTHER: DO YOU NEED ANY PRESCRIPTIONS? NO . IF YES, PLEASE LIST: ____ . ANY NEW PROBLEMS WITH YOUR MEDICATIONS? NO . WHEN DID YOU LAST EAT? 01/15/17 1800 . WHEN DID YOU LAST DRINK? 01/16/17 0630 AM . WHAT DID YOU LAST DRINK? WATER . NAME OF PERSON DRIVING YOU HOME? BRADLEY . DO YOU HAVE ANY OTHER QUESTIONS OR CONCERNS NO . VITAL SIGNS WT 159 LBS, HT 65", BMI 26.46 INDEX, BP 144/86 MM HG, HR 60 /MIN, RR 16 /MIN, TEMP 98.0 F, OXYGEN SAT % 96%, NA INITIALS SC 08:55, REVIEWED BY: PEGGY. ASSESSMENTS INTERVERTEBRAL DISC DISORDERS WITH RADICULOPATHY, LUMBAR REGION - M51.16 (PRIMARY) PROCEDURES PRE PROCEDURE DIAGNOSIS LUMBAR DISC DISORDER WITH RADICULOPATHY POST PROCEDURE DIAGNOSIS LUMBAR DISC DISORDER WITH RADICULOPATHY PROCEDURE LUMBAR EPIDURAL STEROID INJECTION UNDER FLUOROSCOPIC GUIDANCE SURGEON DR. DEBBIE YE LUG BREAKER AND WIRE PULLER NONE ANESTHESIA LOCAL PRE PROCEDURE NOTE THE PATIENT HAS A HISTORY OF CHRONIC LOW BACK PAIN. I EVALUATE THE PATIENT AND REVIEWED THE CHART. I WENT OVER THE RISKS, ALTERNATIVES, AND BENEFITS ASSOCIATED WITH THIS PROCEDURE. THE PATIENT WOULD LIKE TO PROCEED AND GIVE CONSENT TO PERFORMED THE PROCEDURE. THE PATIENT DENIES UNEXPLAINABLE WEIGHT LOSS, FEVER, CHILLS, OR NEW CHANGES IN URINARY OR BOWEL CONTROL. DESCRIPTION OF PROCEDURE THE PATIENT WAS BROUGHT TO THE PROCEDURE ROOM AND PLACED IN THE PRONE POSITION. THE LUMBOSACRAL AREA WAS CLEANED WITH BETADINE SOLUTION AND DRAPED ASEPTICALLY. THE PROCEDURE WAS DONE UNDER STERILE CONDITIONS. I CHECKED LATERALITY AND THE LEVEL WHERE THE PROCEDURE WAS GOING TO BE PERFORMED WITH THE PATIENT AND THE SUPPORTING STAFF AT THE MOMENT OF THE TIME OUT IN THE PROCEDURE ROOM. UNDER FLUOROSCOPIC GUIDANCE, THE TARGET POINT WAS SELECTED AT THE INTERLAMINAR LEVEL OF L4-L5. LIDOCAINE WAS USED TO NUMB THE SKIN AND THE SUBCUTANEOUS TISSUE BELOW IT. EPIDURAL TUOHY NEEDLE, 17-GAUGE, WAS ADVANCED UNDER FLUOROSCOPIC GUIDANCE AND FOLLOWING PATIENT FEEDBACK UNTIL THE EPIDURAL SPACE WAS REACHED, 7 CM DEEP INTO THE SKIN BY THE LOSS OF RESISTANCE TECHNIQUE. ISOVUE M DYE 30%, 0.25 ML, WAS INJECTED SHOWING ADEQUATE SPREAD OF THE DYE. THEN, A SOLUTION OF 3 ML OF NORMAL SALINE WITH DEPO-MEDROL 60 MG WAS INJECTED SLOWLY FOLLOWING PATIENT FEEDBACK. THERE WAS NO EVIDENCE OF BLOOD, PARESTHESIA OR CEREBROSPINAL FLUID DURING THE PROCEDURE. THE PATIENT WAS SENT TO THE RECOVERY ROOM. THE PATIENT WAS MOVING THE EXTREMITIES AND DOING WELL. THERE WAS NO COMPLICATION DURING THE PROCEDURE. FLUOROSCOPY TIME WAS 5 SECONDS. POST PROCEDURE NOTE THE PATIENT WILL BE SEEN IN A FOLLOW UP IN THE NEXT FEW WEEKS. INSTRUCTIONS WERE GIVEN, QUESTIONS WERE ANSWERED, AND THE PATIENT EXPRESSED UNDERSTANDING AND AGREES WITH THE PLAN. I, LYLA REDD, DOCUMENTED THE ABOVE INFORMATION ACTING A SCRIBE FOR DR. YE. I HAVE REVIEWED THE ABOVE DOCUMENT, WRITTEN BY LYLA JOHNS AND I VERIFY THAT IT IS ACCURATE DIAGNOSTIC IMAGING [facility] FLUORO GUIDE SPINE INJECTION (PAIN)[id number] PROCEDURE CODES 53781 LUMBAR/SACRAL W/ IMAGING 6045F RADXPS IN END [id number] PXD DISPOSITION & COMMUNICATION FOLLOW UP 3 WEEKS ELECTRONICALLY SIGNED BY DEBBIE YE MD ON 01/28/2017 AT 07:59 PM EDT DISCLAIMER : THIS IS A VISIT SUMMARY EXTRACTED FROM THE [employer] CHART. IT IS NOT A COPY OF THE [employer] PROGRESS NOTE. KAMALJIT
== END ==
LOC: M PAIN 08:40
PROVIDERS: ATTEND Anesthesiology
DX: G89.29 Other chronic pain (principal); M51.16 Intervertebral disc disorders with radiculopathy, lumbar region; M15.0 Primary generalized (osteo)arthritis; I10 Essential (primary) hypertension; F32.9 Major depressive disorder, single episode, unspecified; F41.9 Anxiety disorder, unspecified; F17.220 Nicotine dependence, chewing tobacco, uncomplicated; J30.2 Other seasonal allergic rhinitis; Z79.82 Long term (current) use of aspirin; Z79.891 Long term (current) use of opiate analgesic; Z79.899 Other long term (current) drug therapy
CPT/HCPCS: 62323; J1030; Q9967

== ENCOUNTER → 2017-01-31 | Outpatient (CLI) | payer BC, MEDICARE ==
--- NOTE | 2017-02-01 00:35 | ECWPNPC ---
PATIENT NAME: FRANKO MOLINA : 1965 GENDER: MALE VISIT DATE: 01/31/2017 DISCHARGE DATE: 01/31/17 0952 VISIT LOCKED DATE TIME: PHYSICIAN: MAYA GARCIA RESOURCE: MAYA GARCIA REASON FOR APPOINTMENT 1. POST L4/5-INTRALAMINAL LESI HISTORY OF PRESENT ILLNESS HISTORY OF PRESENT ILLNESS: HERE FOR POST PROC. F/U .HAD LESI ON 01-16-17.REPORTS >50% IMPROVEMENT IN PAIN THAT CONTINUES TODAY.RATING PAIN VAS 1/10.DESCRIBES PAIN ACHING LEFT LOW BACK THAT RADIATES DOWN LEFT POSTERIOR THIGH.HAS APPOINTMENT W DR. KAMARA NEXT FEW WEEKS PER OUR REFERRAL. PAIN THE PATIENT DESCRIBES THE PAIN... FALL RISK SCREENING: SCREENING :NO FALLS IN THE PAST YEAR CURRENT MEDICATIONS TAKING ASPIR-81 81 MG TABLET DELAYED RELEASE 1 TABLET ORALLY ONCE A DAY TAKING CELEBREX 200 MG CAPSULE 1 CAPSULE ORALLY ONCE A DAY TAKING PRIMIDONE 50 MG TABLET ORALLY TWICE DAILY TAKING LISINOPRIL 10 MG TABLET 1 TABLET ORALLY TWICE A DAY TAKING ZYRTEC ALLERGY 10 MG TABLET 1 TABLET ORALLY ONCE A DAY TAKING PERCOCET 5-325 MG TABLET 1 TABLET NEEDED ORALLY EVERY 6 HRS TAKING CYCLOBENZAPRINE HCL 10 MG TABLET 1 TABLET ORALLY 3X/DAY NEEDED, NOTES: NONE RECENT TAKING ESCITALOPRAM OXALATE 10 MG TABLET 1 TABLET ORALLY ONCE A DAY TAKING AMLODIPINE BESYLATE 10 MG TABLET 1 TABLET ORALLY ONCE A DAY TAKING LIDOCAINE & ADHESIVE SHEETS 5 % (OINT) KIT EXTERNALLY ON 12HR OFF 12HR MEDICATION LIST REVIEWED AND RECONCILED WITH THE PATIENT PAST MEDICAL HISTORY DEPRESSION ANXIETY HTN GENERALIZED OSTEOARTHRITIS INTERVERTEBRAL DISC DEGENERATION LUMBAR RADICULOPATHY CERVICAL RADICULOPATHY NECK SPRAIN OSTEOARTHRITIS ALLERGIES SEASONAL: ITCHY EYES, SINUS CONGESTION: ALLERGY SURGICAL HISTORY RIGHT ROTATOR CUFF REPAIR X 2 SURGERIES CERVICAL FUSION C SPINE DISCECTOMY L SPINE LAMINECTOMY HOSPITALIZATION/MAJOR DIAGNOSTIC PROCEDURE UTI ABOVE SURGERIES REVIEW OF SYSTEMS REVIEWED BY: PROVIDER: MAYA GARCIA LEAD SIMULATION MODELING ENGINEER . CONSTITUTIONAL: ANY CHANGE IN YOUR MEDICAL CONDITION? YES, PT STATES HE WAS SEEN AT [facility] 2 WEEKS AGO FOR TREMBLING, CLAMMY, WEAK FEELING, PT STATES HE FELT HIS SUGAR DROPPED. PT DOES NOT RECALL SPECIFIC DX. . CHILLS NO . FEVER NO . INFECTION: DO YOU HAVE NEW INFECTIONS? NO . DO YOU HAVE HISTORY OF MRSA? NO . MUSCULOSKELETAL: ANY NEW PATTERNS OF PAIN OR NUMBNESS? NO, PTG STATES LESI DONE 01/16/17, PAIN PRE PROCEDURE WAS 4, POST PROCEDURE 0, CURRENTLY 07/11 . GASTROENTEROLOGY: ANY NEW CHANGE IN BOWEL CONTROL? NO . GENITOURINARY: ANY NEW CHANGE IN BLADDER CONTROL? NO . IS THERE A CHANCE YOU COULD BE ? NO . HEMATOLOGY/LYMPH: DO YOU TAKE ANY BLOOD THINNERS? (FOR EXAMPLE- COUMADIN, PLAVIX, AGGRENOX, PLATEL, PRADAXA, OR XARELTO) NO . WHEN WAS YOUR LAST DOSE? DATE: TIME: . NEUROLOGY: HAVE YOU FALLEN IN THE PAST 6 MONTHS? NO . ANY NEW EXTREMITY NUMBNESS OR WEAKNESS? NO . CARDIOLOGY: DO YOU HAVE A PACEMAKER OR DEFIBRILLATOR? NO . RESPIRATORY: HAVE YOU BEEN SICK IN THE PAST WEEK? NO . FEVER NO . FLU LIKE SYMPTOMS? NO . COUGH NO . INTEGUMENTARY: DO YOU HAVE ANY RASHES OR OPEN SORES? NO . ALLERGIC/IMMUNO: ARE YOU ALLERGIC TO SHELLFISH OR IV DYE? NO . ANY NEW ALLERGIES? NO . PSYCHIATRIC: DO YOU HAVE THOUGHTS OF HURTING YOURSELF OR SOMEONE ELSE? NO . ARE YOU ABUSED, NEGLECTED, OR IN AN UNSAFE ENVIRONMENT? NO . ENDOCRINOLOGY: ARE YOU DIABETIC? NO . OTHER: DO YOU NEED ANY PRESCRIPTIONS? NO . IF YES, PLEASE LIST: ____ . ANY NEW PROBLEMS WITH YOUR MEDICATIONS? NO . WHEN DID YOU LAST EAT? ____ . WHEN DID YOU LAST DRINK? ____ . WHAT DID YOU LAST DRINK? ____ . NAME OF PERSON DRIVING YOU HOME? ____ . DO YOU HAVE ANY OTHER QUESTIONS OR CONCERNS NO . VITAL SIGNS WT 152 LBS, HT 65", BMI 25.29 INDEX, BP 134/79 MM HG, HR 69 /MIN, RR 16 /MIN, TEMP 97.8 F, OXYGEN SAT % 95%, SAFE IN ENV? (Y/N) Y, NA INITIALS CA 09:09, REVIEWED BY: EM. EXAMINATION GENERAL EXAMINATION: GENERAL APPEARANCE:NO ACUTE DISTRESS. NECK:NEG LYMPHADENOPATHY. LUNGS:LUNG SOUNDS ARE CLEAR.RESPIRATIONS NON-LABORED. ABDOMEN:SOFT, NON-TENDER, NO ORGANOMEGALY, BOWEL SOUNDS ARE NORMAL. DIAGNOSTIC DATA-MRI L/S SPINE 11-06-14-REVIEWED. LUMBAR SPINE/LOWER BACK: INSPECTION:NORMAL CURVATURE OF SPINE.WELL HEALED ONE INCH SURGICAL SCAR RGHT MID LUMBAR.. PALPATION:VERTEBRAL SPINE TENDERNESS, PARASPINAL TENDERNESS L>R. MOTOR SYSTEM:5/5 BLE. SENSORY EXAM:NORMAL. REFLEXES:2/4 AND SYMMETRIC BLE. GAIT:UNREMARKABLE. ASSESSMENTS SPONDYLOSIS WITHOUT MYELOPATHY OR RADICULOPATHY, CERVICAL REGION - M47.812 (PRIMARY) LUMBAR SPONDYLOSIS - M47.816 TREATMENT SPONDYLOSIS WITHOUT MYELOPATHY OR RADICULOPATHY, CERVICAL REGION NOTES: PATIENT WAS ADVISED TO START A WALKING PROGRAM TO STRENGTHEN LUMBAR PARASPINAL MUSCLES AND IMPROVE MOBILITY. THEY WERE ADVISED THAT THIS WILL IMPROVE WEIGHT LOSS AND ALSO DEPRESSION/FIBROMYALGIA SYMPTOMS. ADVISED TO WALK 10 MINUTES EVERY OTHER DAY ON A FLAT SURFACE. EMPHASIZED THE IMPORTANCE OF DOING THIS CONSISTANTLY AND NOT SPORATICALLY TO AVOID INJURY. STRONG ADVISED NOT TO DO MORE THAN 10 MINUTES EVERY OTHER DSY FOR THE FIRST 4 WEEKS. PROCEDURE CODES FA211 ESTABILISHED PATIENT [facility] CHARGE DISPOSITION & COMMUNICATION FOLLOW UP 2 MONTHS ELECTRONICALLY SIGNED BY REY NETTLES ON 01/31/2017 AT 09:56 AM EDT DISCLAIMER : THIS IS A VISIT SUMMARY EXTRACTED FROM THE [employer] CHART. IT IS NOT A COPY OF THE [employer] PROGRESS NOTE. KAMALJIT
== END ==
LOC: M PAIN 08:40
PROVIDERS: ATTEND Nurse Practitioner Family
DX: G89.29 Other chronic pain (principal); M47.812 Spondylosis without myelopathy or radiculopathy, cervical region; M47.816 Spondylosis without myelopathy or radiculopathy, lumbar region; F32.9 Major depressive disorder, single episode, unspecified; F41.9 Anxiety disorder, unspecified; I10 Essential (primary) hypertension; M15.0 Primary generalized (osteo)arthritis; J30.2 Other seasonal allergic rhinitis; Z79.82 Long term (current) use of aspirin; Z79.899 Other long term (current) drug therapy

== ENCOUNTER → 2017-04-09 | Outpatient (CLI) | payer BC, MEDICARE ==
--- NOTE | 2017-04-24 00:16 | ECWPNPC ---
PATIENT NAME: FRANKO MOLINA : 1965 GENDER: MALE VISIT DATE: 04/09/2017 DISCHARGE DATE: 04/09/17 1024 VISIT LOCKED DATE TIME: PHYSICIAN: MAYA GARCIA RESOURCE: MAYA GARCIA REASON FOR APPOINTMENT 1. BACK HISTORY OF PRESENT ILLNESS HISTORY OF PRESENT ILLNESS: HERE FOR F/U AND MANAGEMENT OF LOW BACK PAIN LEFT POSTERIOR THIGH PAIN AND NECK PAIN.WILL BE HAVING LUMBAR SURGERY AT THE END OF MONTH.CHIEF AREA OF PAIN IS NECK.DESCRIBES PAIN CONSTANT ACHING.HAS RESPONDED TO CERVICAL FACET BLOCKS IN THE PAST.RATING PAIN VAS 5/10.HISTORY OF CERVICAL SURGERY X2 1997 AND 2011. PAIN THE PATIENT DESCRIBES THE PAIN... FALL RISK SCREENING: SCREENING :NO FALLS IN THE PAST YEAR CURRENT MEDICATIONS TAKING ASPIR-81 81 MG TABLET DELAYED RELEASE 1 TABLET ORALLY ONCE A DAY TAKING CELEBREX 200 MG CAPSULE 1 CAPSULE ORALLY ONCE A DAY TAKING PRIMIDONE 50 MG TABLET ORALLY TWICE DAILY TAKING LISINOPRIL 10 MG TABLET 1 TABLET ORALLY TWICE A DAY TAKING ZYRTEC ALLERGY 10 MG TABLET 1 TABLET ORALLY ONCE A DAY TAKING PERCOCET 5-325 MG TABLET 1 TABLET NEEDED ORALLY EVERY 6 HRS TAKING CYCLOBENZAPRINE HCL 10 MG TABLET 1 TABLET ORALLY 3X/DAY NEEDED, NOTES: NONE RECENT TAKING ESCITALOPRAM OXALATE 10 MG TABLET 1 TABLET ORALLY ONCE A DAY TAKING AMLODIPINE BESYLATE 10 MG TABLET 1 TABLET ORALLY ONCE A DAY TAKING LIDOCAINE & ADHESIVE SHEETS 5 % (OINT) KIT EXTERNALLY ON 12HR OFF 12HR MEDICATION LIST REVIEWED AND RECONCILED WITH THE PATIENT PAST MEDICAL HISTORY DEPRESSION ANXIETY HTN GENERALIZED OSTEOARTHRITIS INTERVERTEBRAL DISC DEGENERATION LUMBAR RADICULOPATHY CERVICAL RADICULOPATHY NECK SPRAIN OSTEOARTHRITIS ALLERGIES SEASONAL: ITCHY EYES, SINUS CONGESTION: ALLERGY SURGICAL HISTORY RIGHT ROTATOR CUFF REPAIR X 2 SURGERIES CERVICAL FUSION C SPINE DISCECTOMY L SPINE LAMINECTOMY SOCIAL HISTORY GENERAL: TOBACCO USE ADDITIONAL FINDINGS: TOBACCO USERCHEWS TOBACCO SMOKING CESSATION INFORMATION GIVEN10/23/2016 PAIN CLINIC PFS, CLERGY, PUBLIC HEALTH REFERRALS PFS REFERRAL NEEDED?NO CLERGY REFERRAL NEEDED?NO PUBLIC HEALTH REFERRAL NEEDED?NO WAS THE PROVIDER NOTIFIED OF ANY PERTINENT INFO?NO HAS THE PATIENT BEEN EDUCATED REGARDING HIS/HER PLAN OF CARE?YES HAS THE PATIENT BEEN EDUCATED REGARDING PAIN, THE RISK FOR PAIN, THE IMPORTANCE OF EFFECTIVE PAIN MANAGEMENT, AND THE PAIN ASSESSMENT PROCESS?YES PATIENT: ____. HOSPITALIZATION/MAJOR DIAGNOSTIC PROCEDURE UTI ABOVE SURGERIES REVIEW OF SYSTEMS REVIEWED BY: PROVIDER: MAYA LE . CONSTITUTIONAL: ANY CHANGE IN YOUR MEDICAL CONDITION? NO, PT STATES HE SAW DR. KAMARA LAST WEEK AND A SURGERY IS GOING TO BE SCHEDULED FOR BACK SURGERY TO FUSE L4-L5. . CHILLS NO . FEVER NO . INFECTION: DO YOU HAVE NEW INFECTIONS? NO . DO YOU HAVE HISTORY OF MRSA? NO . MUSCULOSKELETAL: ANY NEW PATTERNS OF PAIN OR NUMBNESS? YES, PAIN SPREADS INTO LEFT SHOULDER AND COLLAR BONE . GASTROENTEROLOGY: ANY NEW CHANGE IN BOWEL CONTROL? NO . GENITOURINARY: ANY NEW CHANGE IN BLADDER CONTROL? NO . IS THERE A CHANCE YOU COULD BE ? NO . HEMATOLOGY/LYMPH: DO YOU TAKE ANY BLOOD THINNERS? (FOR EXAMPLE- COUMADIN, PLAVIX, AGGRENOX, PLATEL, PRADAXA, OR XARELTO) NO . WHEN WAS YOUR LAST DOSE? DATE: TIME: . NEUROLOGY: HAVE YOU FALLEN IN THE PAST 6 MONTHS? YES, PT STATES HE SLIPPED ON MUD YESTERDAY, PT DENIES MAJOR INJURIES REQUIRING MEDICAL INTERVENTION . ANY NEW EXTREMITY NUMBNESS OR WEAKNESS? NO . CARDIOLOGY: DO YOU HAVE A PACEMAKER OR DEFIBRILLATOR? NO . RESPIRATORY: HAVE YOU BEEN SICK IN THE PAST WEEK? NO . FEVER NO . FLU LIKE SYMPTOMS? NO . COUGH NO . INTEGUMENTARY: DO YOU HAVE ANY RASHES OR OPEN SORES? NO . ALLERGIC/IMMUNO: ARE YOU ALLERGIC TO SHELLFISH OR IV DYE? NO . ANY NEW ALLERGIES? NO . PSYCHIATRIC: DO YOU HAVE THOUGHTS OF HURTING YOURSELF OR SOMEONE ELSE? NO . ARE YOU ABUSED, NEGLECTED, OR IN AN UNSAFE ENVIRONMENT? NO . ENDOCRINOLOGY: ARE YOU DIABETIC? NO . OTHER: DO YOU NEED ANY PRESCRIPTIONS? NO . IF YES, PLEASE LIST: ____ . ANY NEW PROBLEMS WITH YOUR MEDICATIONS? NO . WHEN DID YOU LAST EAT? ____ . WHEN DID YOU LAST DRINK? ____ . WHAT DID YOU LAST DRINK? ____ . NAME OF PERSON DRIVING YOU HOME? ____ . DO YOU HAVE ANY OTHER QUESTIONS OR CONCERNS NO . VITAL SIGNS WT 159 LBS, HT 65", BMI 26.46 INDEX, BP 150/84 MM HG, HR 98 /MIN, RR 16 /MIN, TEMP 98.2 F, OXYGEN SAT % 98, REVIEWED BY: EM. EXAMINATION GENERAL EXAMINATION: GENERAL APPEARANCE:NO ACUTE DISTRESS . NECK:NEG LYMPHADENOPATHY . LUNGS:LUNG SOUNDS ARE CLEAR.RESPIRATIONS NON-LABORED . ABDOMEN:SOFT, NON-TENDER, NO ORGANOMEGALY, BOWEL SOUNDS ARE NORMAL . CERVICALTENDER OVER CERVICAL FACETS BILATERAL. . DIAGNOSTIC DATA-MRI C SPINE 08-30-16-REVIEWED. ASSESSMENTS CERVICAL SPONDYLOLYSIS - M43.02 (PRIMARY) MYALGIA - M79.1 TREATMENT CERVICAL SPONDYLOLYSIS NOTES: C5/6-C6/7 THERAPEUTIC FACET BLOCK-BILAT. PREVENTIVE MEDICINE PAIN CLINIC TEACHING: PROCEDURE TEACHING 04/09/17 1020 PATIENT DECLINED PRINTED INFORMATION ON CERVICAL FACET BLOCK STATING HE HAS HAD THEM PREVIOUSLY AND IS FAMILIAR WITH THE PROCEDURE. PRE-PROCEDURE INSTRUCTIONS REVIEWED WITH PT. AND HE VERBALIZED UNDERSTANDING. AD. PROCEDURE CODES FA211 ESTABILISHED PATIENT [facility] CHARGE DISPOSITION & COMMUNICATION FOLLOW UP 2WK POST (REASON: C5/6-C6/7 THERAPEUTIC FACET BLOCK-BILAT.) ELECTRONICALLY SIGNED BY REY NETTLES ON 04/23/2017 AT 09:07 PM EDT DISCLAIMER : THIS IS A VISIT SUMMARY EXTRACTED FROM THE [employer] CHART. IT IS NOT A COPY OF THE [employer] PROGRESS NOTE. KAMALJIT
== END ==
LOC: M PAIN 09:45
PROVIDERS: ATTEND Nurse Practitioner Family
DX: G89.29 Other chronic pain (principal); M43.02 Spondylolysis, cervical region; M79.1 Myalgia; F32.9 Major depressive disorder, single episode, unspecified; F41.9 Anxiety disorder, unspecified; I10 Essential (primary) hypertension; M15.0 Primary generalized (osteo)arthritis; F17.228 Nicotine dependence, chewing tobacco, with other nicotine-induced disorders; J30.2 Other seasonal allergic rhinitis; Z79.82 Long term (current) use of aspirin; Z79.899 Other long term (current) drug therapy

== ENCOUNTER → 2017-04-11 | Outpatient (CLI) | payer BC, MEDICARE ==
[~2017-04-11] MED LIST changes: +BUPIVACAINE HCL 0.25% 30 ML VIAL As Ordered ONE; +TRIAMCINOLONE ACETONIDE SUSP 40 MG/ML VIAL (J3301) As Ordered ONE; -methylPREDNISolone SUSP 40 MG/ML (DEPO-medrol) VIAL (J1030) As Ordered ONE
--- NOTE | 2017-04-11 16:07 | REP ---
Partial cervical spine series: Single view. History: Cervical facet block for pain. Findings: A single last image hold fluoroscopic spot radiograph of the cervical spine documents needle position and contrast injections for facet injection procedure. 7 seconds of fluoroscopy time is reported. Signed by Nimesh Veras MD 04/11/2017 05:03 P
--- NOTE | 2017-04-17 00:11 | ECWPNPC ---
PATIENT NAME: FRANKO MOLINA : 1965 GENDER: MALE VISIT DATE: 04/11/2017 DISCHARGE DATE: 04/11/17 1046 VISIT LOCKED DATE TIME: PHYSICIAN: DEBBIE YE RESOURCE: DEBBIE YE REASON FOR APPOINTMENT 1. C5/6-C6/7 THERAPEUTIC FACET BLOCK-BILAT. HISTORY OF PRESENT ILLNESS HISTORY OF PRESENT ILLNESS: PAIN THE PATIENT DESCRIBES THE PAIN... FALL RISK SCREENING: SCREENING :NO FALLS IN THE PAST YEAR CURRENT MEDICATIONS TAKING ASPIR-81 81 MG TABLET DELAYED RELEASE 1 TABLET ORALLY ONCE A DAY, NOTES: 0530 TAKING CELEBREX 200 MG CAPSULE 1 CAPSULE ORALLY ONCE A DAY, NOTES: 0530 TAKING PRIMIDONE 50 MG TABLET ORALLY TWICE DAILY, NOTES: 0530 TAKING LISINOPRIL 10 MG TABLET 1 TABLET ORALLY TWICE A DAY, NOTES: 0530 TAKING ZYRTEC ALLERGY 10 MG TABLET 1 TABLET ORALLY ONCE A DAY, NOTES: 0530 TAKING PERCOCET 5-325 MG TABLET 1 TABLET NEEDED ORALLY EVERY 6 HRS, NOTES: 1 MONTH AGO TAKING ESCITALOPRAM OXALATE 10 MG TABLET 1 TABLET ORALLY ONCE A DAY, NOTES: 0530 TAKING AMLODIPINE BESYLATE 10 MG TABLET 1 TABLET ORALLY ONCE A DAY, NOTES: 0530 NOT-TAKING CYCLOBENZAPRINE HCL 10 MG TABLET 1 TABLET ORALLY 3X/DAY NEEDED, NOTES: NONE RECENT DISCONTINUED LIDOCAINE & ADHESIVE SHEETS 5 % (OINT) KIT EXTERNALLY ON 12HR OFF 12HR MEDICATION LIST REVIEWED AND RECONCILED WITH THE PATIENT PAST MEDICAL HISTORY DEPRESSION ANXIETY HTN GENERALIZED OSTEOARTHRITIS INTERVERTEBRAL DISC DEGENERATION LUMBAR RADICULOPATHY CERVICAL RADICULOPATHY NECK SPRAIN OSTEOARTHRITIS ALLERGIES SEASONAL: ITCHY EYES, SINUS CONGESTION: ALLERGY SOCIAL HISTORY GENERAL: TOBACCO USE ADDITIONAL FINDINGS: TOBACCO USERCHEWS TOBACCO SMOKING CESSATION INFORMATION GIVEN04/11/2017 PAIN CLINIC PFS, CLERGY, PUBLIC HEALTH REFERRALS PFS REFERRAL NEEDED?NO CLERGY REFERRAL NEEDED?NO PUBLIC HEALTH REFERRAL NEEDED?NO WAS THE PROVIDER NOTIFIED OF ANY PERTINENT INFO?NO HAS THE PATIENT BEEN EDUCATED REGARDING HIS/HER PLAN OF CARE?YES HAS THE PATIENT BEEN EDUCATED REGARDING PAIN, THE RISK FOR PAIN, THE IMPORTANCE OF EFFECTIVE PAIN MANAGEMENT, AND THE PAIN ASSESSMENT PROCESS?YES PATIENT: ____. REVIEW OF SYSTEMS REVIEWED BY: PROVIDER: . CONSTITUTIONAL: ANY CHANGE IN YOUR MEDICAL CONDITION? NO . CHILLS NO . FEVER NO . INFECTION: DO YOU HAVE NEW INFECTIONS? NO . DO YOU HAVE HISTORY OF MRSA? NO . MUSCULOSKELETAL: ANY NEW PATTERNS OF PAIN OR NUMBNESS? NO . GASTROENTEROLOGY: ANY NEW CHANGE IN BOWEL CONTROL? NO . GENITOURINARY: ANY NEW CHANGE IN BLADDER CONTROL? NO . IS THERE A CHANCE YOU COULD BE ? NO . HEMATOLOGY/LYMPH: DO YOU TAKE ANY BLOOD THINNERS? (FOR EXAMPLE- COUMADIN, PLAVIX, AGGRENOX, PLATEL, PRADAXA, OR XARELTO) NO . WHEN WAS YOUR LAST DOSE? DATE: TIME: . NEUROLOGY: HAVE YOU FALLEN IN THE PAST 6 MONTHS? YES . ANY NEW EXTREMITY NUMBNESS OR WEAKNESS? NO . CARDIOLOGY: DO YOU HAVE A PACEMAKER OR DEFIBRILLATOR? NO . RESPIRATORY: HAVE YOU BEEN SICK IN THE PAST WEEK? NO . FEVER NO . FLU LIKE SYMPTOMS? NO . COUGH NO . INTEGUMENTARY: DO YOU HAVE ANY RASHES OR OPEN SORES? NO . ALLERGIC/IMMUNO: ARE YOU ALLERGIC TO SHELLFISH OR IV DYE? NO . ANY NEW ALLERGIES? NO . PSYCHIATRIC: DO YOU HAVE THOUGHTS OF HURTING YOURSELF OR SOMEONE ELSE? NO . ARE YOU ABUSED, NEGLECTED, OR IN AN UNSAFE ENVIRONMENT? NO . ENDOCRINOLOGY: ARE YOU DIABETIC? NO . OTHER: DO YOU NEED ANY PRESCRIPTIONS? NO . IF YES, PLEASE LIST: ____ . ANY NEW PROBLEMS WITH YOUR MEDICATIONS? NO . WHEN DID YOU LAST EAT? ____04/10/17 . WHEN DID YOU LAST DRINK? ____0530 . WHAT DID YOU LAST DRINK? ____APPLE JUICE . NAME OF PERSON DRIVING YOU HOME? ____ANTHONY . DO YOU HAVE ANY OTHER QUESTIONS OR CONCERNS NO . VITAL SIGNS WT 159 LBS, HT 65", BMI 26.46 INDEX, BP 139/80 MM HG, HR 56 /MIN, RR 16 /MIN, TEMP 96.7 F, OXYGEN SAT % 97%, NA INITIALS SC 08:55, REVIEWED BY: VD. ASSESSMENTS SPONDYLOSIS OF CERVICAL REGION WITHOUT MYELOPATHY OR RADICULOPATHY - M47.812 (PRIMARY) PROCEDURES PN CERVICAL FACET BLOCK LOW BILATERAL CERVICAL PRE PROCEDURE DIAGNOSIS CERVICAL SPONDYLOSIS POST PROCEDURE DIAGNOSIS CERVICAL SPONDYLOSIS PROCEDURE BILATERAL C3-C4 AND BILATERAL C4-C5 CERVICAL FACET BLOCK THERAPEUTIC SURGEON DR. DEBBIE YE WHEEL LACER AND TRUER NONE ANESTHESIA LOCAL PRE PROCEDURE NOTE THE PATIENT HAS HISTORY OF CHRONIC CERVICAL PAIN. I EVALUATE THE PATIENT AND REVIEWED THE CHART. I WENT OVER THE RISKS, ALTERNATIVES, AND BENEFITS ASSOCIATED WITH THIS PROCEDURE. THE PATIENT WOULD LIKE TO PROCEED AND GIVE CONSENT TO PERFORMED THE PROCEDURE. THE PATIENT DENIES UNEXPLAINABLE WEIGHT LOSS, FEVER, CHILLS, OR NEW CHANGES IN URINARY OR BOWEL CONTROL. DESCRIPTION OF PROCEDURE THE PATIENT WAS BROUGHT TO THE PROCEDURE ROOM AND PLACED IN THE PRONE POSITION. THE CERVICOTHORACIC AREA WAS CLEANED WITH CHLORAPREP SOLUTION AND DRAPED ASEPTICALLY. THE PROCEDURE WAS DONE UNDER STERILE CONDITIONS. I CHECKED LATERALITY AND THE LEVEL WHERE THE PROCEDURE WAS GOING TO BE PERFORMED WITH THE PATIENT AND THE SUPPORTING STAFF AT THE MOMENT OF THE TIME OUT IN THE PROCEDURE ROOM. UNDER FLUOROSCOPIC GUIDANCE, TARGET POINT WAS SELECTED AT THE RIGHT AND LEFT C3-C4 AND RIGHT AND LEFT C4-C5 CERVICAL FACET JOINT. TARGET POINTS WERE SELECTED AFTER LATERAL ROTATION AND TILT OF THE MAGNIFIER OF THE C-ARM. LIDOCAINE 0.5% WAS USED TO NUMB THE SKIN AND THE SUBCUTANEOUS TISSUE BELOW IT. SPINAL NEEDLES, 22-GAUGE, WERE ADVANCED UNDER FLUOROSCOPIC GUIDANCE AND FOLLOWING PATIENT FEEDBACK UNTIL THE TARGETS WERE TOUCHED. THE POSITION OF THE NEEDLES WAS VERIFIED WITH AP AND LATERAL VIEWS. AFTER PROPER POSITION OF THE NEEDLES WAS ACHIEVED, ISOVUE M DYE 30, 0.1 ML WAS INJECTED SHOWING SPREAD OF THE DYE. THEN A SOLUTION OF 0.9 ML OF BUPIVACAINE 0.125% AND KENALOG 10 MG WAS INJECTED AT EACH SITE. THERE WAS NO EVIDENCE OF BLOOD, PARESTHESIA OR CEREBROSPINAL FLUID DURING THE PROCEDURE. THE PATIENT WAS SENT TO THE RECOVERY ROOM. THE PATIENT WAS MOVING THE EXTREMITIES AND DOING WELL. THERE WAS NO COMPLICATION DURING THE PROCEDURE. FLUOROSCOPY TIME WAS 7 SECONDS POST PROCEDURE NOTE THE PATIENT WILL BE SEEN IN A FOLLOW UP IN THE NEXT FEW WEEKS. INSTRUCTIONS WERE GIVEN, QUESTIONS WERE ANSWERED, AND THE PATIENT EXPRESSED UNDERSTANDING AND AGREES WITH THE PLAN. I, LYLA REDD, DOCUMENTED THE ABOVE INFORMATION ACTING A SCRIBE FOR DR. YE. I, DR. YE, HAVE REVIEWED THE ABOVE DOCUMENT, SCRIBED BY LYLA REDD, AND I VERIFY THAT IT IS ACCURATE. DIAGNOSTIC IMAGING [facility] FACET BLOCK (PAIN)[id number] PROCEDURE CODES 25923 INJ PARAVERT F JNT C/T 1 LEV, MODIFIERS: 50 [id number] INJ PARAVERT F JNT C/T 2 LEV, MODIFIERS: 50 [id number] RADXPS IN END [id number] PXD DISPOSITION & COMMUNICATION FOLLOW UP 3 WEEKS ELECTRONICALLY SIGNED BY DEBBIE YE MD ON 04/16/2017 AT 02:50 AM EDT DISCLAIMER : THIS IS A VISIT SUMMARY EXTRACTED FROM THE [employer] CHART. IT IS NOT A COPY OF THE [employer] PROGRESS NOTE. MTDD
== END ==
LOC: M PAIN 08:45
PROVIDERS: ATTEND Anesthesiology
DX: G89.29 Other chronic pain (principal); M47.812 Spondylosis without myelopathy or radiculopathy, cervical region; F32.9 Major depressive disorder, single episode, unspecified; F41.9 Anxiety disorder, unspecified; I10 Essential (primary) hypertension; M15.0 Primary generalized (osteo)arthritis; F17.228 Nicotine dependence, chewing tobacco, with other nicotine-induced disorders; J30.2 Other seasonal allergic rhinitis; Z79.82 Long term (current) use of aspirin; Z79.899 Other long term (current) drug therapy
CPT/HCPCS: 64490; 64491; J3301; Q9967

== ENCOUNTER → 2017-05-01 | Outpatient (CLI) | payer BC, MEDICARE ==
--- NOTE | 2017-05-21 00:05 | ECWPNPC ---
PATIENT NAME: FRANKO MOLINA : 1965 GENDER: MALE VISIT DATE: 05/01/2017 DISCHARGE DATE: 05/01/17 0935 VISIT LOCKED DATE TIME: PHYSICIAN: MAYA GARCIA RESOURCE: MAYA GARCIA REASON FOR APPOINTMENT 1. BACK HISTORY OF PRESENT ILLNESS HISTORY OF PRESENT ILLNESS: HERE FOR F/U AND MANAGEMENT OF LOW BACK PAIN LEFT POSTERIOR THIGH PAIN AND NECK PAIN.WILL BE HAVING LUMBAR SURGERY NEXT WEEK.HERE FOR POST PROCEDURE F/U.HAD BILATERAL CERVICAL FACET THERAPEUTIC BLOCK ON 04-11-17.SIGNIFICANT REDUCTION IN PAIN CONTINUES TODAY.RATING NECK PAIN 1/10 VAS.CHIEF AREA OF PAIN IS NECK.DESCRIBES PAIN CONSTANT ACHING.HISTORY OF CERVICAL SURGERY X2 1997 AND 2011. PAIN THE PATIENT DESCRIBES THE PAIN... THE PATIENT DESCRIBES THE PAIN... FALL RISK SCREENING: SCREENING :NO FALLS IN THE PAST YEAR CURRENT MEDICATIONS TAKING MULTIVITAMIN ADULTS 50+ - TABLET ORALLY DAILY UNKNOWN ASPIR-81 81 MG TABLET DELAYED RELEASE 1 TABLET ORALLY ONCE A DAY UNKNOWN CELEBREX 200 MG CAPSULE 1 CAPSULE ORALLY ONCE A DAY UNKNOWN PRIMIDONE 50 MG TABLET ORALLY TWICE DAILY UNKNOWN LISINOPRIL 10 MG TABLET 1 TABLET ORALLY TWICE A DAY UNKNOWN ZYRTEC ALLERGY 10 MG TABLET 1 TABLET ORALLY ONCE A DAY NEEDED UNKNOWN PERCOCET 5-325 MG TABLET 1 TABLET NEEDED ORALLY EVERY 6 HRS UNKNOWN ESCITALOPRAM OXALATE 10 MG TABLET 1 TABLET ORALLY ONCE A DAY UNKNOWN AMLODIPINE BESYLATE 10 MG TABLET 1 TABLET ORALLY ONCE A DAY UNKNOWN CYCLOBENZAPRINE HCL 10 MG TABLET 1 TABLET ORALLY 3X/DAY NEEDED MEDICATION LIST REVIEWED AND RECONCILED WITH THE PATIENT PAST MEDICAL HISTORY DEPRESSION ANXIETY HTN GENERALIZED OSTEOARTHRITIS INTERVERTEBRAL DISC DEGENERATION LUMBAR RADICULOPATHY CERVICAL RADICULOPATHY NECK SPRAIN OSTEOARTHRITIS ALLERGIES SEASONAL: ITCHY EYES, SINUS CONGESTION: ALLERGY SURGICAL HISTORY RIGHT ROTATOR CUFF REPAIR X 2 SURGERIES CERVICAL FUSION C SPINE DISCECTOMY L SPINE LAMINECTOMY FAMILY HISTORY FATHER: MOTHER: SOCIAL HISTORY GENERAL: TOBACCO USE ADDITIONAL FINDINGS: TOBACCO USERCHEWS TOBACCO SMOKING CESSATION INFORMATION GIVEN04/11/2017 SYNAGOGUE [id number] LATTER-DAY LEARNING BARRIERS / SPECIAL NEEDS CHANGE FROM LAST VISIT?NO PAIN CLINIC PFS, CLERGY, PUBLIC HEALTH REFERRALS PFS REFERRAL NEEDED?NO CLERGY REFERRAL NEEDED?NO PUBLIC HEALTH REFERRAL NEEDED?NO WAS THE PROVIDER NOTIFIED OF ANY PERTINENT INFO?NO HAS THE PATIENT BEEN EDUCATED REGARDING HIS/HER PLAN OF CARE?YES HAS THE PATIENT BEEN EDUCATED REGARDING PAIN, THE RISK FOR PAIN, THE IMPORTANCE OF EFFECTIVE PAIN MANAGEMENT, AND THE PAIN ASSESSMENT PROCESS?YES PATIENT: ____. ADVANCE DIRECTIVES HEALTH CARE PROXY?YES NAME OF HCP EMILIANO MOLINA () CONTACT # FOR HCP [phone] DO YOU HAVE A COPY WITH YOU?NO DO YOU HAVE A DNR?NO WOULD YOU LIKE MORE INFORMATION?NO LIVING WILL?NO WOULD YOU LIKE MORE INFORMATION?NO POWER OF BRAKE REPAIRER?NO WOULD YOU LIKE MORE INFORMATION?NO HOSPITALIZATION/MAJOR DIAGNOSTIC PROCEDURE UTI ABOVE SURGERIES REVIEW OF SYSTEMS REVIEWED BY: PROVIDER: MAYA LE . CONSTITUTIONAL: ANY CHANGE IN YOUR MEDICAL CONDITION? NO . CHILLS NO . FEVER NO . INFECTION: DO YOU HAVE NEW INFECTIONS? NO . DO YOU HAVE HISTORY OF MRSA? NO . MUSCULOSKELETAL: ANY NEW PATTERNS OF PAIN OR NUMBNESS? NO . GASTROENTEROLOGY: ANY NEW CHANGE IN BOWEL CONTROL? NO . GENITOURINARY: ANY NEW CHANGE IN BLADDER CONTROL? NO . IS THERE A CHANCE YOU COULD BE ? NO . HEMATOLOGY/LYMPH: DO YOU TAKE ANY BLOOD THINNERS? (FOR EXAMPLE- COUMADIN, PLAVIX, AGGRENOX, PLATEL, PRADAXA, OR XARELTO) NO . WHEN WAS YOUR LAST DOSE? DATE: TIME: . NEUROLOGY: HAVE YOU FALLEN IN THE PAST 6 MONTHS? NO . ANY NEW EXTREMITY NUMBNESS OR WEAKNESS? NO . CARDIOLOGY: DO YOU HAVE A PACEMAKER OR DEFIBRILLATOR? NO . RESPIRATORY: HAVE YOU BEEN SICK IN THE PAST WEEK? NO . FEVER NO . FLU LIKE SYMPTOMS? NO . COUGH NO . INTEGUMENTARY: DO YOU HAVE ANY RASHES OR OPEN SORES? NO . ALLERGIC/IMMUNO: ARE YOU ALLERGIC TO SHELLFISH OR IV DYE? NO . ANY NEW ALLERGIES? NO . PSYCHIATRIC: DO YOU HAVE THOUGHTS OF HURTING YOURSELF OR SOMEONE ELSE? NO . ARE YOU ABUSED, NEGLECTED, OR IN AN UNSAFE ENVIRONMENT? NO . ENDOCRINOLOGY: ARE YOU DIABETIC? NO . OTHER: DO YOU NEED ANY PRESCRIPTIONS? NO . IF YES, PLEASE LIST: ____ . ANY NEW PROBLEMS WITH YOUR MEDICATIONS? NO . WHEN DID YOU LAST EAT? ____ . WHEN DID YOU LAST DRINK? ____ . WHAT DID YOU LAST DRINK? ____ . NAME OF PERSON DRIVING YOU HOME? ____ . DO YOU HAVE ANY OTHER QUESTIONS OR CONCERNS NO . VITAL SIGNS WT 148 LBS, HT 65", BMI 24.63 INDEX, BP 134/82 MM HG, HR 72 /MIN, RR 16 /MIN, TEMP 97.9 F, OXYGEN SAT % 98%, REVIEWED BY: PEGGY. EXAMINATION GENERAL EXAMINATION: GENERAL APPEARANCE:NO ACUTE DISTRESS . NECK:NEG LYMPHADENOPATHY . LUNGS:LUNG SOUNDS ARE CLEAR.RESPIRATIONS NON-LABORED . ABDOMEN:SOFT, NON-TENDER, NO ORGANOMEGALY, BOWEL SOUNDS ARE NORMAL . CERVICALNONTENDER OVER CERVICAL FACETS BILATERAL. . DIAGNOSTIC DATA-MRI C SPINE 08-30-16-REVIEWED. ASSESSMENTS CERVICAL SPONDYLOLYSIS - M43.02 (PRIMARY) MYALGIA - M79.1 LUMBAR SPONDYLOSIS - M47.816 PROCEDURE CODES FA211 ESTABILISHED PATIENT [facility] CHARGE DISPOSITION & COMMUNICATION FOLLOW UP 3 MONTHS ELECTRONICALLY SIGNED BY REY NETTLES ON 05/20/2017 AT 03:03 PM EST DISCLAIMER : THIS IS A VISIT SUMMARY EXTRACTED FROM THE [employer] CHART. IT IS NOT A COPY OF THE [employer] PROGRESS NOTE. KAMALJIT
== END ==
LOC: M PAIN 08:45
PROVIDERS: ATTEND Nurse Practitioner Family
DX: M43.02 Spondylolysis, cervical region (principal); M79.1 Myalgia; M47.816 Spondylosis without myelopathy or radiculopathy, lumbar region; F32.9 Major depressive disorder, single episode, unspecified; I10 Essential (primary) hypertension; F17.228 Nicotine dependence, chewing tobacco, with other nicotine-induced disorders; Z79.82 Long term (current) use of aspirin; Z79.891 Long term (current) use of opiate analgesic; Z79.899 Other long term (current) drug therapy

== ENCOUNTER → 2017-08-01 | Outpatient (CLI) | payer BC, MEDICARE | LOC: M PAIN 08:45 | DX: G89.29 Other chronic pain (principal); M43.02 Spondylolysis, cervical region; M48.02 Spinal stenosis, cervical region; F32.9 Major depressive disorder, single episode, unspecified; F41.9 Anxiety disorder, unspecified; I10 Essential (primary) hypertension; M15.0 Primary generalized (osteo)arthritis; F17.220 Nicotine dependence, chewing tobacco, uncomplicated; J30.2 Other seasonal allergic rhinitis; Z79.82 Long term (current) use of aspirin; Z79.899 Other long term (current) drug therapy; Z98.1 Arthrodesis status | CPT/HCPCS: G0463 ==

== ENCOUNTER → 2017-08-13 | Outpatient (CLI) | payer BC, MEDICARE ==
[~2017-08-13] MED LIST changes: +BUPIVACAINE HCL 0.25% 30 ML VIAL As Ordered; -BUPIVACAINE HCL 0.25% 30 ML VIAL As Ordered ONE; +ISOVUE-M 300 61% 15ML VIAL (Q9967) As Ordered; -ISOVUE-M 300 61% 15ML VIAL (Q9967) As Ordered ONE; +LIDOCAINE 1% SDV INJ 30 ML VIAL As Ordered; -LIDOCAINE 1% SDV INJ 30 ML VIAL As Ordered ONE; +TRIAMCINOLONE ACETONIDE SUSP 40 MG/ML VIAL (J3301) As Ordered; -TRIAMCINOLONE ACETONIDE SUSP 40 MG/ML VIAL (J3301) As Ordered ONE; +diazePAM 5 MG TAB As Ordered; -diazePAM 5 MG TAB As Ordered ONE; +oxyCODONE 5MG TAB As Ordered; -oxyCODONE 5MG TAB As Ordered ONE
== END ==
LOC: M PAIN 14:00
DX: G89.29 Other chronic pain (principal); M47.812 Spondylosis without myelopathy or radiculopathy, cervical region; I10 Essential (primary) hypertension; F17.228 Nicotine dependence, chewing tobacco, with other nicotine-induced disorders; Z79.82 Long term (current) use of aspirin; Z79.899 Other long term (current) drug therapy; J30.2 Other seasonal allergic rhinitis
CPT/HCPCS: J3301

== ENCOUNTER → 2017-09-03 | Outpatient (CLI) | payer BC, MEDICARE | LOC: M PAIN 09:30 | DX: M43.02 Spondylolysis, cervical region (principal); M48.02 Spinal stenosis, cervical region; I10 Essential (primary) hypertension; F17.228 Nicotine dependence, chewing tobacco, with other nicotine-induced disorders; Z79.82 Long term (current) use of aspirin; J30.2 Other seasonal allergic rhinitis | CPT/HCPCS: G0463 ==

== ENCOUNTER → 2017-12-28 | Outpatient (CLI) | payer BC, MEDICARE | LOC: M PAIN 09:00 | DX: M43.02 Spondylolysis, cervical region (principal); M48.02 Spinal stenosis, cervical region; G89.29 Other chronic pain; F41.9 Anxiety disorder, unspecified; I10 Essential (primary) hypertension; F32.9 Major depressive disorder, single episode, unspecified; M15.0 Primary generalized (osteo)arthritis; F17.210 Nicotine dependence, cigarettes, uncomplicated; J30.2 Other seasonal allergic rhinitis; Z79.82 Long term (current) use of aspirin; Z79.899 Other long term (current) drug therapy | CPT/HCPCS: G0463 ==

== ENCOUNTER → 2018-01-14 | Outpatient (CLI) | payer BC, MEDICARE | LOC: M PAIN 08:45 | DX: G89.29 Other chronic pain (principal); M47.22 Other spondylosis with radiculopathy, cervical region; F41.9 Anxiety disorder, unspecified; F32.9 Major depressive disorder, single episode, unspecified; I10 Essential (primary) hypertension; M15.0 Primary generalized (osteo)arthritis; J30.2 Other seasonal allergic rhinitis; R25.1 Tremor, unspecified; Z87.891 Personal history of nicotine dependence; Z79.82 Long term (current) use of aspirin; Z79.899 Other long term (current) drug therapy | CPT/HCPCS: J3301 ==

== ENCOUNTER → 2018-01-31 | Outpatient (CLI) | payer BC, MEDICARE | LOC: M PAIN 08:45 | DX: M47.22 Other spondylosis with radiculopathy, cervical region (principal); M48.02 Spinal stenosis, cervical region; F41.9 Anxiety disorder, unspecified; F32.9 Major depressive disorder, single episode, unspecified; R25.1 Tremor, unspecified; I10 Essential (primary) hypertension; J30.2 Other seasonal allergic rhinitis; M15.0 Primary generalized (osteo)arthritis; Z98.1 Arthrodesis status; Z79.82 Long term (current) use of aspirin; Z79.899 Other long term (current) drug therapy; Z87.891 Personal history of nicotine dependence | CPT/HCPCS: G0463 ==

== ENCOUNTER → 2018-04-02 | Outpatient (CLI) | payer BC, MEDICARE | LOC: M PAIN 08:45 | DX: M79.10 Myalgia, unspecified site (principal); M47.812 Spondylosis without myelopathy or radiculopathy, cervical region; I10 Essential (primary) hypertension; F41.9 Anxiety disorder, unspecified; F32.9 Major depressive disorder, single episode, unspecified; M15.0 Primary generalized (osteo)arthritis; R25.1 Tremor, unspecified; J30.2 Other seasonal allergic rhinitis; Z79.82 Long term (current) use of aspirin; Z79.899 Other long term (current) drug therapy | CPT/HCPCS: G0463 ==

== ENCOUNTER → 2018-04-17 | Outpatient (CLI) | payer BC, MEDICARE ==
[~2018-04-17] MED LIST changes: -ISOVUE-M 300 61% 15ML VIAL (Q9967) As Ordered; -LIDOCAINE 1% SDV INJ 30 ML VIAL As Ordered
== END ==
LOC: M PAIN 13:45
DX: M79.18 Myalgia, other site (principal); M54.2 Cervicalgia; M25.512 Pain in left shoulder; M54.6 Pain in thoracic spine; I10 Essential (primary) hypertension; R25.1 Tremor, unspecified; M19.90 Unspecified osteoarthritis, unspecified site; F32.9 Major depressive disorder, single episode, unspecified; F41.9 Anxiety disorder, unspecified; J30.2 Other seasonal allergic rhinitis; Z79.82 Long term (current) use of aspirin; Z79.899 Other long term (current) drug therapy
CPT/HCPCS: J3301

== ENCOUNTER → 2018-05-01 | Outpatient (CLI) | payer BC, MEDICARE | LOC: M PAIN 09:15 | DX: M50.20 Other cervical disc displacement, unspecified cervical region (principal); M54.12 Radiculopathy, cervical region; F41.9 Anxiety disorder, unspecified; I10 Essential (primary) hypertension; F32.9 Major depressive disorder, single episode, unspecified; M15.0 Primary generalized (osteo)arthritis; R25.1 Tremor, unspecified; J30.2 Other seasonal allergic rhinitis; Z79.82 Long term (current) use of aspirin; Z79.891 Long term (current) use of opiate analgesic; Z79.899 Other long term (current) drug therapy | CPT/HCPCS: G0463 ==

== ENCOUNTER → 2018-05-15 | Outpatient (CLI) | payer BC, MEDICARE ==
[~2018-05-15] MED LIST changes: -BUPIVACAINE HCL 0.25% 30 ML VIAL As Ordered; +ISOVUE-M 300 61% 15ML VIAL (Q9967) As Ordered; +LIDOCAINE 1% SDV INJ 30 ML VIAL As Ordered; -TRIAMCINOLONE ACETONIDE SUSP 40 MG/ML VIAL (J3301) As Ordered; +methylPREDNISolone SUSP 40 MG/ML (DEPO-medrol) VIAL (J1030) As Ordered
== END ==
LOC: M PAIN 09:45
DX: M50.10 Cervical disc disorder with radiculopathy, unspecified cervical region (principal); M96.1 Postlaminectomy syndrome, not elsewhere classified; I10 Essential (primary) hypertension; F32.9 Major depressive disorder, single episode, unspecified; F41.9 Anxiety disorder, unspecified; M15.0 Primary generalized (osteo)arthritis; J30.2 Other seasonal allergic rhinitis; Z79.82 Long term (current) use of aspirin; Z79.891 Long term (current) use of opiate analgesic; Z79.899 Other long term (current) drug therapy; Z87.891 Personal history of nicotine dependence; Z86.69 Personal history of other diseases of the nervous system and sense organs
CPT/HCPCS: J1030

== ENCOUNTER → 2018-05-30 | Outpatient (CLI) | payer BC, MEDICARE | LOC: M PAIN 08:45 | DX: M50.20 Other cervical disc displacement, unspecified cervical region (principal); M54.12 Radiculopathy, cervical region; I10 Essential (primary) hypertension; M15.0 Primary generalized (osteo)arthritis; F32.9 Major depressive disorder, single episode, unspecified; F41.9 Anxiety disorder, unspecified; J30.2 Other seasonal allergic rhinitis; Z79.82 Long term (current) use of aspirin; Z79.891 Long term (current) use of opiate analgesic; Z79.899 Other long term (current) drug therapy; Z87.891 Personal history of nicotine dependence; Z86.69 Personal history of other diseases of the nervous system and sense organs | CPT/HCPCS: G0463 ==

== ENCOUNTER → 2018-07-03 | Outpatient (CLI) | payer BC, MEDICARE ==
[~2018-07-03] MED LIST changes: +BUPIVACAINE HCL 0.25% 30 ML VIAL As Ordered ONE; -ISOVUE-M 300 61% 15ML VIAL (Q9967) As Ordered; +ISOVUE-M 300 61% 15ML VIAL (Q9967) As Ordered ONE; -LIDOCAINE 1% SDV INJ 30 ML VIAL As Ordered; +LIDOCAINE 1% SDV INJ 30 ML VIAL As Ordered ONE; +TRIAMCINOLONE ACETONIDE SUSP 40 MG/ML VIAL (J3301) As Ordered ONE; -diazePAM 5 MG TAB As Ordered; +diazePAM 5 MG TAB As Ordered ONE; -methylPREDNISolone SUSP 40 MG/ML (DEPO-medrol) VIAL (J1030) As Ordered; -oxyCODONE 5MG TAB As Ordered; +oxyCODONE 5MG TAB As Ordered ONE
--- NOTE | 2018-07-03 11:39 | REP ---
CERVICAL SPINE SERIES: Two views. HISTORY: Bilateral cervical spine facet block for pain. 8 seconds of fluoroscopy time is reported. FINDINGS: A sequence of two last image hold fluoroscopically obtained spot radiographs of the cervical spine document needle position and contrast injection associated with cervical spine facet injection procedure. Electronically Signed by Nimesh Veras MD 07/03/2018 06:44 P
--- NOTE | 2018-07-20 23:36 | ECWPNPC ---
PATIENT NAME: FRANKO MOLINA : 1965 GENDER: MALE VISIT DATE: 07/03/2018 DISCHARGE DATE: 07/03/18 1149 VISIT LOCKED DATE TIME: PHYSICIAN: DEBBIE YE MD RESOURCE: DEBBIE YE MD REASON FOR APPOINTMENT 1. C4/5-5/6 THERAPEUTIC FACET BLOCK HISTORY OF PRESENT ILLNESS HISTORY OF PRESENT ILLNESS: PAIN THE PATIENT DESCRIBES THE PAIN... FALL RISK SCREENING: SCREENING :NO FALLS IN THE PAST YEAR CURRENT MEDICATIONS TAKING MULTIVITAMIN ADULTS 50+ - TABLET ORALLY DAILY, NOTES: 07/02/18 TAKING CELEBREX 200 MG CAPSULE 1 CAPSULE ORALLY ONCE A DAY, NOTES: 07/03/18 AM TAKING ASPIR-81 81 MG TABLET DELAYED RELEASE 1 TABLET ORALLY ONCE A DAY, NOTES: 07/02/18 TAKING PRIMIDONE 50 MG TABLET ORALLY TWICE DAILY, NOTES: 07/03/18 AM TAKING LISINOPRIL 10 MG TABLET 1 TABLET ORALLY TWICE A DAY, NOTES: 07/03/18 AM TAKING ESCITALOPRAM OXALATE 10 MG TABLET 1 TABLET ORALLY ONCE A DAY, NOTES: 07/03/18 AM TAKING ZYRTEC ALLERGY 10 MG TABLET 1 TABLET ORALLY ONCE A DAY NEEDED, NOTES: 07/02/18 TAKING AMLODIPINE BESYLATE 10 MG TABLET 1 TABLET ORALLY ONCE A DAY, NOTES: 07/03/18 AM TAKING TRAMADOL HCL 50 MG TABLET 1-2 ORALLY Q8H PRN MDD4, NOTES: NONE LATELY TAKING TIZANIDINE HCL 2 MG TABLET 1 TABLET NEEDED ORALLY Q8H NEEDED, NOTES: NONE LATELY NOT-TAKING PERCOCET 5-325 MG TABLET 1 TABLET NEEDED ORALLY EVERY 6 HRS NOT-TAKING KETOROLAC TROMETHAMINE 10 MG TABLET 1 TABLET WITH FOOD OR MILK NEEDED ORALLY EVERY 6 HRS NOT-TAKING CYCLOBENZAPRINE HCL 10 MG TABLET 1 TABLET ORALLY 3X/DAY NEEDED MEDICATION LIST REVIEWED AND RECONCILED WITH THE PATIENT PAST MEDICAL HISTORY ANXIETY HTN DEPRESSION GENERALIZED OSTEOARTHRITIS INTERVERTEBRAL DISC DEGENERATION LUMBAR RADICULOPATHY CERVICAL RADICULOPATHY NECK SPRAIN OSTEOARTHRITIS TREMORS ALLERGIES SEASONAL: ITCHY EYES, SINUS CONGESTION: ALLERGY SURGICAL HISTORY RIGHT ROTATOR CUFF REPAIR X 2 SURGERIES CERVICAL FUSION C SPINE DISCECTOMY L SPINE LAMINECTOMY L3- L5 FUSION 2016 SOCIAL HISTORY GENERAL: TOBACCO USE ARE YOU A:FORMER SMOKER ADDITIONAL FINDINGS: TOBACCO USERCHEWS TOBACCO QUIT SEPTEMBER 2017 SMOKING CESSATION INFORMATION GIVEN09/03/2017 ALCOHOL SCREENING DID YOU HAVE A DRINK CONTAINING ALCOHOL IN THE PAST YEAR?YES HOW MANY DRINKS DID YOU HAVE ON A TYPICAL DAY WHEN YOU WERE DRINKING IN THE PAST YEAR?3 OR 4 (1 POINT) HOW OFTEN DID YOU HAVE SIX OR MORE DRINKS ON ONE OCCASION IN THE PAST YEAR?LESS THAN MONTHLY (1 POINT) POINTS4 INTERPRETATIONPOSITIVE HOW OFTEN DID YOU HAVE A DRINK CONTAINING ALCOHOL IN THE PAST YEAR?TWO TO FOUR TIMES A MONTH (2 POINTS) RECREATIONAL DRUG USE DRUG USE?NO JEW [id number] [employer] LANGUAGE LANGUAGES SPOKEN:[place] LEARNING BARRIERS / SPECIAL NEEDS CHANGE FROM LAST VISIT?NO PAIN CLINIC PFS, CLERGY, PUBLIC HEALTH REFERRALS PFS REFERRAL NEEDED?NO CLERGY REFERRAL NEEDED?NO PUBLIC HEALTH REFERRAL NEEDED?NO WAS THE PROVIDER NOTIFIED OF ANY PERTINENT INFO?NO HAS THE PATIENT BEEN EDUCATED REGARDING HIS/HER PLAN OF CARE?YES HAS THE PATIENT BEEN EDUCATED REGARDING PAIN, THE RISK FOR PAIN, THE IMPORTANCE OF EFFECTIVE PAIN MANAGEMENT, AND THE PAIN ASSESSMENT PROCESS?YES ADVANCE DIRECTIVE ADVANCE DIRECTIVE DISCUSSED WITH PATIENT:YES DECLINED HOSPITALIZATION/MAJOR DIAGNOSTIC PROCEDURE UTI ABOVE SURGERIES REVIEW OF SYSTEMS REVIEWED BY: PROVIDER: . CONSTITUTIONAL: ANY CHANGE IN YOUR MEDICAL CONDITION? NO . CHILLS NO . FEVER NO . INFECTION: DO YOU HAVE NEW INFECTIONS? NO . DO YOU HAVE HISTORY OF MRSA? NO . MUSCULOSKELETAL: ANY NEW PATTERNS OF PAIN OR NUMBNESS? NO . GASTROENTEROLOGY: ANY NEW CHANGE IN BOWEL CONTROL? NO . GENITOURINARY: ANY NEW CHANGE IN BLADDER CONTROL? NO . IS THERE A CHANCE YOU COULD BE ? NO . HEMATOLOGY/LYMPH: DO YOU TAKE ANY BLOOD THINNERS? (FOR EXAMPLE- COUMADIN, PLAVIX, AGGRENOX, PLATEL, PRADAXA, OR XARELTO) NO . WHEN WAS YOUR LAST DOSE? DATE: TIME: . NEUROLOGY: HAVE YOU FALLEN IN THE PAST 6 MONTHS? NO . ANY NEW EXTREMITY NUMBNESS OR WEAKNESS? NO . CARDIOLOGY: DO YOU HAVE A PACEMAKER OR DEFIBRILLATOR? NO . RESPIRATORY: HAVE YOU BEEN SICK IN THE PAST WEEK? NO . FEVER NO . FLU LIKE SYMPTOMS? NO . COUGH NO . INTEGUMENTARY: DO YOU HAVE ANY RASHES OR OPEN SORES? NO . ALLERGIC/IMMUNO: ARE YOU ALLERGIC TO SHELLFISH OR IV DYE? NO . ANY NEW ALLERGIES? NO . PSYCHIATRIC: DO YOU HAVE THOUGHTS OF HURTING YOURSELF OR SOMEONE ELSE? NO . ARE YOU ABUSED, NEGLECTED, OR IN AN UNSAFE ENVIRONMENT? NO . ENDOCRINOLOGY: ARE YOU DIABETIC? NO . OTHER: DO YOU NEED ANY PRESCRIPTIONS? NO . IF YES, PLEASE LIST: ____ . ANY NEW PROBLEMS WITH YOUR MEDICATIONS? NO . WHEN DID YOU LAST EAT? 1630 . WHEN DID YOU LAST DRINK? 0600 . WHAT DID YOU LAST DRINK? WATER . NAME OF PERSON DRIVING YOU HOME? BRADLEY . DO YOU HAVE ANY OTHER QUESTIONS OR CONCERNS NO . VITAL SIGNS WT 155.4 LBS, HT 65", BMI 25.86 INDEX, BP 151/86 MM HG, HR 70 /MIN, RR 16 /MIN, TEMP 97.5 F, OXYGEN SAT % 97%, NA INITIALS AW 0943, REVIEWED BY: EM. ASSESSMENTS SPONDYLOSIS OF CERVICAL REGION WITHOUT MYELOPATHY OR RADICULOPATHY - M47.812 (PRIMARY) PROCEDURES PN CERVICAL FACET BLOCK HIGH LATERAL CERVICAL PRE PROCEDURE DIAGNOSIS CERVICAL SPONDYLOSIS POST PROCEDURE DIAGNOSIS CERVICAL SPONDYLOSIS PROCEDURE BILATERAL C2-3 AND BILATERAL C3-4 CERVICAL THERAPEUTIC FACET BLOCK SURGEON DR. 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 I EVALUATE THE PATIENT AND REVIEWED THE CHART. I WENT OVER THE RISKS, ALTERNATIVES, AND BENEFITS ASSOCIATED WITH THIS PROCEDURE. THE PATIENT WOULD LIKE TO PROCEED AND GIVE CONSENT TO PERFORMED THE PROCEDURE. THE PATIENT DENIES UNEXPLAINABLE WEIGHT LOSS, FEVER, CHILLS, OR NEW CHANGES IN URINARY OR BOWEL CONTROL DESCRIPTION OF PROCEDURE THE PATIENT WAS BROUGHT TO THE PROCEDURE ROOM AND PLACED IN THE LATERAL DECUBITUS POSITION. THE CERVICAL AREA WAS CLEANED WITH CHLORAPREP SOLUTION AND DRAPED ASEPTICALLY. THE PROCEDURE WAS DONE UNDER STERILE CONDITIONS. I CHECKED LATERALITY AND THE LEVEL WHERE THE PROCEDURE WAS GOING TO BE PERFORMED WITH THE PATIENT AND THE SUPPORTING STAFF AT THE MOMENT OF THE TIME OUT IN THE PROCEDURE ROOM. UNDER FLUOROSCOPIC GUIDANCE, TARGET POINT WAS SELECTED AT THE RIGHT AND LEFT C2-3 AND RIGHT AND LEFT C3-4 CERVICAL FACET. TARGET POINTS WERE SELECTED AFTER LATERAL ROTATION AND TILT OF THE MAGNIFIER OF THE C-ARM. LIDOCAINE 0.5% WAS USED TO NUMB THE SKIN AND THE SUBCUTANEOUS TISSUE BELOW IT. SPINAL NEEDLES, 22-GAUGE, WERE ADVANCED UNDER FLUOROSCOPIC GUIDANCE AND FOLLOWING PATIENT FEEDBACK UNTIL THE TARGETS WERE TOUCHED. THE POSITION OF THE NEEDLES WAS VERIFIED WITH AP AND LATERAL VIEWS. AFTER PROPER POSITION OF THE NEEDLES WAS ACHIEVED, ISOVUE M DYE 30, 0.1 ML WAS INJECTED SHOWING SPREAD OF THE DYE. THEN A SOLUTION OF 0.9 ML OF BUPIVACAINE 0.125% AND KENALOG 10 MG WAS INJECTED AT EACH SITE. THERE WAS NO EVIDENCE OF BLOOD, PARESTHESIA OR CEREBROSPINAL FLUID DURING THE PROCEDURE. THE PATIENT WAS SENT TO THE RECOVERY ROOM. THE PATIENT WAS MOVING THE EXTREMITIES AND DOING WELL. THERE WAS NO COMPLICATION DURING THE PROCEDURE. FLUOROSCOPY TIME WAS 8 SECONDS POST PROCEDURE NOTE THE PATIENT WILL BE SEEN IN A FOLLOW UP IN THE NEXT FEW WEEKS. INSTRUCTIONS WERE GIVEN, QUESTIONS WERE ANSWERED, AND THE PATIENT EXPRESSED UNDERSTANDING AND AGREED WITH THE PLAN. I, JOSEFINA MCDUFFIE, DOCUMENTED THE ABOVE INFORMATION ACTING A SCRIBE FOR DR. YE. I HAVE REVIEWED THE ABOVE DOCUMENT, WRITTEN BY JOSEFINA MCDUFFIE SCRIBE AND I VERIFY THAT IT IS [facility]NOST[facility] FACET BLOCK (PAIN)[id number] PROCEDURE CODES 6045F RADXPS IN END [id number] PXD [id number] INJ PARAVERT F JNT C/T 1 LEV, MODIFIERS: 50 [id number] INJ PARAVERT F JNT C/T 2 LEV, MODIFIERS: 50 DISPOSITION & COMMUNICATION FOLLOW UP 3 WEEKS ELECTRONICALLY SIGNED BY DEBBIE YE MD, MD ON 07/20/2018 AT 06:58 PM EST DISCLAIMER : THIS IS A VISIT SUMMARY EXTRACTED FROM THE [employer] CHART. IT IS NOT A COPY OF THE [employer] PROGRESS NOTE. MTDD
== END ==
LOC: M PAIN 10:15
PROVIDERS: ATTEND Anesthesiology
DX: G89.29 Other chronic pain (principal); M47.812 Spondylosis without myelopathy or radiculopathy, cervical region; I10 Essential (primary) hypertension; F41.9 Anxiety disorder, unspecified; F32.9 Major depressive disorder, single episode, unspecified; M15.0 Primary generalized (osteo)arthritis; R25.1 Tremor, unspecified; J30.2 Other seasonal allergic rhinitis; F17.220 Nicotine dependence, chewing tobacco, uncomplicated; Z79.82 Long term (current) use of aspirin; Z79.891 Long term (current) use of opiate analgesic; Z79.899 Other long term (current) drug therapy
CPT/HCPCS: 64490; 64491; J3301; Q9967

== ENCOUNTER → 2024-05-09 | Outpatient (CLI) | payer BC, MEDICARE | LOC: M PAIN 08:00 | PROVIDERS: ATTEND Nurse Practitioner Family | DX: M96.1 Postlaminectomy syndrome, not elsewhere classified (principal); M51.16 Intervertebral disc disorders with radiculopathy, lumbar region; G89.29 Other chronic pain; F41.9 Anxiety disorder, unspecified; I10 Essential (primary) hypertension; F32.A Depression, unspecified; M15.0 Primary generalized (osteo)arthritis; Z87.891 Personal history of nicotine dependence; Z79.899 Other long term (current) drug therapy ==

== ENCOUNTER → 2024-07-11 | Outpatient (CLI) | payer BC, MEDICARE ==
[~2024-07-11] MED LIST changes: -BUPIVACAINE HCL 0.25% 30 ML VIAL As Ordered ONE; -ISOVUE-M 300 61% 15ML VIAL (Q9967) As Ordered ONE; +ISOVUE-M 300 61% 15ML VIAL As Ordered ONE; +LIDOCAINE 1% SDV 30ML VIAL As Ordered ONE; -LIDOCAINE 1% SDV INJ 30 ML VIAL As Ordered ONE; -TRIAMCINOLONE ACETONIDE SUSP 40 MG/ML VIAL (J3301) As Ordered ONE; +dexAMETHasone 10MG/1ML VIAL PRES.FREE As Ordered ONE; -diazePAM 5 MG TAB As Ordered ONE; +diazePAM 5MG TABLET As Ordered ONE
== END ==
LOC: M PAIN 08:00
PROVIDERS: ATTEND Anesthesiology
DX: M51.16 Intervertebral disc disorders with radiculopathy, lumbar region (principal); M96.1 Postlaminectomy syndrome, not elsewhere classified; G89.29 Other chronic pain; Z79.899 Other long term (current) drug therapy; Z87.891 Personal history of nicotine dependence; Z91.048 Other nonmedicinal substance allergy status
CPT/HCPCS: 62323; J1100; Q9967